=== PATIENT | male | born 1945 | race Caucasian/White ===

== ENCOUNTER → 2016-03-15 | Outpatient (CLI) | payer OTHER ==
[~2016-03-15] MED LIST: ACIT1CAP2 PEG; ASPCH81X PO; FLM4 PO; ROSU20TA PO; TRAM-10 PO; XRL10 PO
[2016-03-15 12:49] LABS: BLOOD UREA NITROGEN 15 mg/dl (7-18); BUN/CREATININE RATIO 15.4 (10-20); CALCIUM 9.1 mg/dl (8.5-10.1); CARBON DIOXIDE 29 mmol/L (21-32); CHLORIDE 106 mmol/L (98-107); GLUCOSE 96 mg/dl (70-99); POTASSIUM 4.1 mmol/L (3.5-5.1); SODIUM 143 mmol/L (136-145)
== END | disposition home or self-care (01) ==
LOC: C.LABMFLN 11:30
PROVIDERS: ATTEND Family Medicine
DX: M54.9 Dorsalgia, unspecified (principal); R31.29 Other microscopic hematuria

== ENCOUNTER → 2016-03-15 | Outpatient (CLI) | payer OTHER ==
[~2016-03-15] MED LIST changes: +OPTIRAY 320 IV PRN
--- NOTE | 2016-03-15 13:17 | DIAGNOSTIC IMAGING REPORT ---
CT ABD/PELVIS IV AND ORAL CONT CLINICAL HISTORY: Acute back pain and hematuria COMPARISON STUDY: None. TECHNIQUE: Following the IV administration of 93 mL of Optiray-320, CT scan of the abdomen and pelvis was performed from the lung bases to the proximal femurs. Images are reviewed in the axial, sagittal, and coronal planes. IV contrast was administered without complication. CT DOSE: 635.65 mGy.cm FINDINGS: Lower chest: There is mild basilar atelectasis. Groundglass opacities in the left lower lobe are likely atelectatic. There are 3 adjacent right middle lobe pulmonary nodules measuring 5 mm 7 mm and 7 mm respectively. The clustered nature of the nodules favors an inflammatory/postinflammatory process. 6 month follow-up is recommended (assuming this is a low risk patient). There is small hiatal hernia. Liver: The contrast-enhanced liver is normal in size, contour, and attenuation. There is no intrahepatic biliary ductal dilatation. The hepatic veins and portal veins are patent. Gallbladder: Unremarkable. Spleen: Normal in size and attenuation. Pancreas: Unremarkable. Adrenal glands: Unremarkable. Kidneys: There is a 3 mm nonobstructing right renal calculus. There is a 3 mm nonobstructing intrarenal calculus on the left. There are bilateral renal cysts, the largest of which measures 9.6 cm. There is left-sided hydronephrosis. There is a proximal left ureteral calculus measuring 5 mm. Bowel: There are no transition zones indicate bowel obstruction. There is colonic diverticulosis. There are no acute peridiverticular inflammatory changes. There are no findings to indicate acute appendicitis. Peritoneum: There is no intraperitoneal free air or abdominal ascites. Vasculature: The abdominal aorta is normal in course and caliber. Adenopathy: None. Pelvic viscera: There is prostamegaly. Multiple prostatic calcifications are visualized. Skeletal structures: No destructive osseous lesions are seen. IMPRESSION: 1. 5 mm obstructing proximal left UPJ calculus at the L2-3 level. 2. Bilateral nephrolithiasis 3. No evidence of bowel obstruction. No evidence of free air 4. Clustered right middle lobe pulmonary nodules, the largest of which measures 7 mm. 6 month follow-up is recommended (assuming this is a low risk patient). Please refer to below summary of Fleischner criteria recommendations for follow-up of incidental CT nodules (Hector Meyers, Guidelines for management of small pulmonary nodules detected on CT scans: A statement from the Fleischner Society, Radiology 237: [phone].) Low Risk Patient: Minimal or no smoking or other known risk factors for malignancy <=4 mm: No follow-up needed. >4-6 mm: Initial follow-up CT at 12 months; if unchanged, no further follow-up. >6-8 mm: Initial follow-up CT at 6-12 months then at 18-24 months if no change. >8 mm: Follow-up CT at \R\3, 9, 24 months, or PET and/or biopsy. High Risk Patient: History of smoking or other known risk factors <=4 mm: Follow-up at 12 months; if unchanged, no further follow-up. >4-6 mm: Initial follow-up CT at 6-12 months then at 18-24 months if no change. >6-8 mm: Initial follow-up CT at 3-6 months then at 9-12 and 24 months if no change. >8 mm: Same as low risk patient. Note: Nodule size measured as average of length and width. Ground glass or partly solid nodules may require longer follow-up to exclude indolent adenocarcinoma. Electronically signed by: Olu Mathews M.D. 03/15/2016 1:15 PM Dictated Date/Time: 03/15/2016 1:08 PM
== END | disposition home or self-care (01) ==
LOC: C.CTS 11:27
PROVIDERS: ATTEND Family Medicine
DX: N20.0 Calculus of kidney (principal); R91.8 Other nonspecific abnormal finding of lung field; M54.9 Dorsalgia, unspecified; R31.29 Other microscopic hematuria

== ENCOUNTER → 2016-04-05 | Outpatient (CLI) | payer OTHER ==
[~2016-04-05] MED LIST changes: -OPTIRAY 320 IV PRN
--- NOTE | 2016-04-05 13:20 | DIAGNOSTIC IMAGING REPORT ---
KUB MEDICAL HISTORY: Nephrolithiasis. FINDINGS: 2 AP supine abdominal radiographs are correlated with abdominal CT dated 03/15/2016. There is a nonobstructed abdominal bowel gas pattern. Large coarse calcifications are noted in the prostate gland. An 8 mm calculus projects over the left transverse process of L4, likely corresponding to an obstructing ureteral calculus. An additional 4 mm nonobstructing calculus projects over the left kidney. No calcifications are seen projecting over the right kidney or along the course of the right ureter. Vascular calcifications are seen in the pelvis. The skeletal structures are osteopenic. There is moderate lumbosacral spondylosis. IMPRESSION: 1. An 8 mm calcification projects over the left transverse process of L4. This likely represents an obstructing ureteral calculus. 2. An additional nonobstructing calculus projects over the left kidney. Electronically signed by: Mihir Cervantes M.D. 04/05/2016 1:18 PM Dictated Date/Time: 04/05/2016 1:16 PM
== END | disposition home or self-care (01) ==
LOC: C.RAD 12:48
PROVIDERS: ATTEND Urology
DX: N20.0 Calculus of kidney (principal)

== ENCOUNTER → 2016-04-14 | Day surgery (SDC) | payer OTHER ==
--- NOTE | 2016-04-07 08:36 | DIAGNOSTIC IMAGING REPORT ---
CHEST 2 VIEWS ROUTINE CLINICAL HISTORY: Preoperative evaluation. Ureteral calculus. COMPARISON STUDY: No previous studies for comparison. FINDINGS: There is no pneumothorax or pleural effusion. Pulmonary vascularity is normal. Cardiac size is normal. Mediastinal contours are normal. Multiple pulmonary nodules are noted, including a 1.8 cm nodule superolateral to the left hilum. There is a 1.4 cm right upper lobe nodule. Several right middle lobe nodules are noted. IMPRESSION: 1. Multiple indeterminate pulmonary nodules, measuring up to 1.[address] is recommended for further evaluation. 2. No acute cardiopulmonary findings. Electronically signed by: Omi Bowden M.D. 04/07/2016 8:35 AM Dictated Date/Time: 04/07/2016 8:31 AM
[2016-04-07 09:36] LABS: BASO % 0.2 %; BASO ABS # 0.02 K/uL (0-0.2); COMPLETE YES; HEMATOCRIT 51.1 % (42-52); IG% 0.3 %; LYMPH % 15.4 %; LYMPH ABS # 1.81 K/uL (1.2-3.4); MEAN CELL VOLUME 92.7 fL (80-100); MEAN CORPUSCULAR HEMOGLOBIN 32.3 pg (25-34); MEAN CORPUSCULAR HGB CONC 34.8 g/dl (32-36); MEAN PLATELET VOLUME 10.7 fL (7.4-10.4); NEUT % 75.1 %; PLATELET COUNT 198 K/uL (130-400); RED BLOOD COUNT 5.51 M/uL (4.7-6.1); WHITE BLOOD COUNT 11.74 K/uL (4.8-10.8)
[2016-04-07 09:51] LABS: BLOOD UREA NITROGEN 13 mg/dl (7-18); CARBON DIOXIDE 29 mmol/L (21-32); CHLORIDE 104 mmol/L (98-107); POTASSIUM 4.2 mmol/L (3.5-5.1); SODIUM 141 mmol/L (136-145)
[2016-04-07 09:57] LABS: URINE APPEARANCE CLEAR (CLEAR); URINE BILIRUBIN NEG (NEG); URINE COLOR YELLOW; URINE NITRITE NEG (NEG); URINE PH 5.5 (4.5-7.5); URINE SPECIFIC GRAVITY 1.015 (1.000-1.030); UROBILINOGEN NEG (NEG)
[2016-04-07 10:03] LABS: MANUAL MICROSCOPIC REQUIRED? NO; REVIEW REQ? NO
[2016-04-12 08:54] VITALS: Ht 188 cm; Wt 90.5 kg
[~2016-04-14] VITALS: Ht 188 cm; Wt 90.5 kg
[~2016-04-14] MED LIST changes: +ACETAMINOPHEN 325 MG TAB PO PRN; +ALBUT/IPRATROP 3MG/0.5MG NEB 3 ML VIAL ONE; +ATROPINE SULFATE 0.1 MG/ML 5ML SYR IV PRN; +DEXAMETHASONE SOD INJ 4 MG/ML VIAL ONE; +EpHEDrine SULFATE 50MG/5ML SYR ONE; +EpHEDrine SULFATE INJ 50 MG/ML AMP IV PRN; +FENTANYL CITRATE INJ 50 MCG/1 ML 2 ML VIAL IV PRN; +FENTANYL CITRATE INJ 50 MCG/1 ML 2 ML VIAL ONE; +LACTATED RINGER'S 1000ML 1,000 ML IV SCH; +LIDOCAINE HCL 2% 2 ML VIAL (20MG/ML) ONE; +MIDAZOLAM HCL 1 MG/ML 2ML VIAL ONE; +NURSING VERBAL MED ORDER ONE; +ONDANSETRON INJ 2 MG/ML 2 ML VIAL ONE; +OXYCODONE/ACETAMINOPHEN 5-325 TAB PO PRN; +PHENYLEPHRINE HCL INJ 10 MG/ML VIAL ONE; +PROPOFOL IV EMULSION 10 MG/ML 20 ML VIAL IV ONE; +SODIUM CHLORIDE 0.9% 1000ML 1,000 ML IV SCH; +TAMSULOSIN HCL 0.4 MG CAP PO SCH
--- NOTE | 2016-04-14 08:26 | DIAGNOSTIC IMAGING REPORT ---
KUB HISTORY: N20.0 [id number] COMPARISON: KUB 04/05/2016. FINDINGS: The bowel gas pattern is unremarkable. There are no dilated loops of small bowel to suggest an obstruction. No change in the 8 mm stone at the left side of the L4 vertebral body. This favors a proximal left ureteral stone. There is also stable 4 mm calcification projecting over the lower pole of the left kidney. There are 2 punctate stones within the upper pole of the right kidney. Stable punctate calcification overlying the left side of the lower sacrum. This may represent a phlebolith. No pneumoperitoneum or pneumatosis. IMPRESSION: 1. Bilateral nephrolithiasis. 2. No change in the 8 mm calcification overlying the left L4 transverse processes. This favors a proximal left ureteral stone. Electronically signed by: Pee Quiles M.D. 04/14/2016 8:25 AM Dictated Date/Time: 04/14/2016 8:22 AM
--- NOTE | 2016-04-14 08:47 | History & Physical Bridge Note ---
H&P Re-Evaluation Bridge Note: I have examined the patient, reviewed the History & Physical and in the interval since the performance of the History & Physical I have noted the following changes of clinical significance: No changes noted
--- NOTE | 2016-04-14 09:10 | Discharge Instructions-SurgCtr ---
Discharge Instructions Visit Reason for Visit: Left Ureteral Calculus Discharge Discharge Diagnosis / Problem: treat left ureteral stone Discharge Goals Goal(s): Decrease discomfort, Improve function, Increase independence, Improve disease control Medications Stopped Medications Name(s): Aspirin Last dose 04/07/16 Activity Recommendations Activity Limitations: resume your previous activity Lifting Limitations: none Exercise/Sports Limitations: none May Resume Sexual Activity: when tolerated Shower/Bathe: no limitations Driving or Machine Use: no limitations Anesthesia . Post Anesthesia Instructions: If you have had General Anesthesia or IV Sedation: * Do not drive today. * Resume driving when surgeon permits. * Do not make important decisions or sign legal documents today. * Call surgeon for: 1. Temperature elevations greater than 101 degrees F. 2. Uncontrollable pain. 3. Excessive bleeding. 4. Persistent nausea and vomiting. 5. Medication intolerance (nausea, vomiting or rash). * For nausea and vomiting use only clear liquids such as: tea, soda, bouillon until nausea subsides, then gradually increase diet as tolerated. * If you have any concerns or questions, call your surgeon's office. If physician is unavailable and it is an emergency, call 911 or go to the nearest emergency room. . Diet Recommendations Home Diet: no limitations Pending Studies Studies pending at discharge: no Medical Emergencies . Who to Call and When: Medical Emergencies: If at any time you feel your situation is an emergency, please call 911 immediately. . Non-Emergent Contact Non-Emergency issues call your: Urologist Call Non-Emergent contact if: you have a fever, temperature is above 101.5, your pain is not controlled, your pain is worsening . . "Provider Documentation" section prepared by Artur Gunn.
--- NOTE | 2016-04-14 09:43 | [facility] Post Operative Brief Note ---
Immediate Operative Summary Operative Date Apr 14, 2016. Pre-Operative Diagnosis Left ureteral stone Post-Operative Diagnosis same Procedure(s) Performed Left Extracorporeal Shock Wave Lithotripsy--Ureteral Surgeon Dr Sanderson Addiction Psychiatrist Surgeon(s) 0 Estimated Blood Loss 0 Findings left ureteral stone - appeared to fragment nicely Specimens 0 Drains none Anesthesia gen Complication(s) None Disposition Recovery Room / PACU (stable)
--- NOTE | 2016-04-14 10:29 | Anesthesia Progress Nt - [facility] ---
Anesthesia Post Op Note Date & Time Apr 14, 2016 at 10:29 Vital Signs Pain Intensity: 0 Vital Signs Past 12 Hours Date Time Temp Pulse Resp B/P Pulse Ox O2 Delivery O2 Flow Rate FiO2 04/14/16 09:50 36.2 92 24 113/73 95 Diffusion Mask 6 04/14/16 07:35 36.4 79 18 136/84 94 Room Air Notes Mental Status: alert / awake / arousable, participated in evaluation Pt Amnestic to Procedure: Yes Nausea / Vomiting: adequately controlled Pain: adequately controlled Airway Patency, RR, SpO2: stable & adequate BP & HR: stable & adequate Hydration State: stable & adequate Anesthetic Complications: no major complications apparent
[2016-04-14 11:28] VITALS: TEMP 37
[2016-04-14 11:55] VITALS: BP 133/78; PULSE 94; O2SAT 94
--- NOTE | 2016-04-16 13:35 | OPERATIVE REPORT ---
DATE OF OPERATION: 04/14/2016 PREOPERATIVE DIAGNOSIS: Left ureteral calculus. POSTOPERATIVE DIAGNOSIS: Left ureteral calculus. PROCEDURE PERFORMED: Left extracorporeal shockwave lithotripsy. ANESTHESIA: General. ESTIMATED BLOOD LOSS: 0. URINE OUTPUT: Not recorded. SPECIMENS: There are no specimens. DRAINS: There are no drains. DESCRIPTION OF THE PROCEDURE: Mika Orr was identified in the preoperative holding area. Appropriate informed consents were reviewed and completed and the patient was transported to the operating suite. Upon arrival, he did not receive antibiotics and general anesthesia was induced. A left extracorporeal shockwave lithotripsy was then commenced after localizing the stone. A total of 3000 shocks were delivered to the stone with good evidence of fragmentation. Further details can be found on the [place] [facility] Management Information Sheet. At the conclusion of the case, the patient was extubated and taken to the PACU in stable condition. I attest to the content of the Intraoperative Record and any orders documented therein. Any exceptio ns are noted below.
== END | disposition home or self-care (01) ==
LOC: X.SURG 07:23
PROVIDERS: ATTEND Urology
DX: N20.1 Calculus of ureter (principal); R31.29 Other microscopic hematuria; L73.2 Hidradenitis suppurativa; M54.9 Dorsalgia, unspecified; I25.10 Atherosclerotic heart disease of native coronary artery without angina pectoris; L40.9 Psoriasis, unspecified

== ENCOUNTER → 2016-04-19 | Outpatient (CLI) | payer OTHER ==
[~2016-04-19] MED LIST changes: -ACETAMINOPHEN 325 MG TAB PO PRN; -ALBUT/IPRATROP 3MG/0.5MG NEB 3 ML VIAL ONE; -ATROPINE SULFATE 0.1 MG/ML 5ML SYR IV PRN; -DEXAMETHASONE SOD INJ 4 MG/ML VIAL ONE; -EpHEDrine SULFATE 50MG/5ML SYR ONE; -EpHEDrine SULFATE INJ 50 MG/ML AMP IV PRN; -FENTANYL CITRATE INJ 50 MCG/1 ML 2 ML VIAL IV PRN; -FENTANYL CITRATE INJ 50 MCG/1 ML 2 ML VIAL ONE; -LACTATED RINGER'S 1000ML 1,000 ML IV SCH; -LIDOCAINE HCL 2% 2 ML VIAL (20MG/ML) ONE; -MIDAZOLAM HCL 1 MG/ML 2ML VIAL ONE; -NURSING VERBAL MED ORDER ONE; -ONDANSETRON INJ 2 MG/ML 2 ML VIAL ONE; -OXYCODONE/ACETAMINOPHEN 5-325 TAB PO PRN; -PHENYLEPHRINE HCL INJ 10 MG/ML VIAL ONE; -PROPOFOL IV EMULSION 10 MG/ML 20 ML VIAL IV ONE; -SODIUM CHLORIDE 0.9% 1000ML 1,000 ML IV SCH; -TAMSULOSIN HCL 0.4 MG CAP PO SCH
--- NOTE | 2016-04-19 07:53 | DIAGNOSTIC IMAGING REPORT ---
KUB CLINICAL HISTORY: Nephrolithiasis. FINDINGS: 2 AP abdominal radiographs are compared to study dated 04/14/2016 and correlated with abdominal CT dated 03/15/2016. There is a nonobstructed abdominal bowel gas pattern. Large coarse calcifications are noted in the prostate gland. The left ureteral calculus seen on 04/14/2016 is no longer identified. A 5 mm nonobstructing calculus projects over the left kidney, and a punctate nonobstructing calculi project over the right upper pole. Numerous vascular calcifications are seen in the pelvis. The skeletal structures are osteopenic. There is moderate lumbosacral spondylosis. IMPRESSION: 1. The large left ureteral calculus seen on 04/14/2016 is no longer identified. 2. Bilateral nonobstructing calculi as above. Electronically signed by: Mihir Cervantes M.D. 04/19/2016 7:51 AM Dictated Date/Time: 04/19/2016 7:46 AM
== END | disposition home or self-care (01) ==
LOC: C.RAD 07:21
PROVIDERS: ATTEND Urology
DX: N20.0 Calculus of kidney (principal)

== ENCOUNTER → 2016-04-25 | Outpatient (CLI) | payer OTHER | END | disposition home or self-care (01) | LOC: C.LABSPEC 10:13 | PROVIDERS: ATTEND Family Medicine | DX: N20.0 Calculus of kidney (principal) ==

== ENCOUNTER → 2016-05-01 | Outpatient (CLI) | payer OTHER ==
[2016-05-01 13:58] LABS: CHOLESTEROL/HDL RATIO 3.1
== END | disposition home or self-care (01) ==
LOC: C.LABMFLN 07:42
PROVIDERS: ATTEND Family Medicine
DX: E78.00 Pure hypercholesterolemia, unspecified (principal)

== ENCOUNTER 2016-05-15 09:49 | Emergency (ER) | payer OTHER ==
[~2016-05-15] VITALS: Ht 188 cm; Wt 91.2 kg
[~2016-05-15 09:49] MED LIST changes: -ACIT1CAP2 PEG; -OPTIRAY 320 IV PRN; -XRL10 PO
[2016-05-15 09:57] VITALS: TEMP 36.9; Ht 188 cm; Wt 91.2 kg
[2016-05-15] MEDS ORDERED: ACIT1CAP2 PEG (10:35)
[2016-05-15 10:41] LABS: BASO % 0.4 %; BASO ABS # 0.04 K/uL (0-0.2); COMPLETE YES; EOS % 6.6 %; HEMATOCRIT 45.2 % (42-52); IG% 0.2 %; LYMPH % 18.8 %; LYMPH ABS # 1.73 K/uL (1.2-3.4); MEAN CELL VOLUME 91.5 fL (80-100); MEAN CORPUSCULAR HEMOGLOBIN 31.6 pg (25-34); MEAN CORPUSCULAR HGB CONC 34.5 g/dl (32-36); MEAN PLATELET VOLUME 9.9 fL (7.4-10.4); MONO % 6.6 %; NEUT % 67.4 %; PLATELET COUNT 169 K/uL (130-400); RED BLOOD COUNT 4.94 M/uL (4.7-6.1); WHITE BLOOD COUNT 9.19 K/uL (4.8-10.8)
[2016-05-15 10:57] LABS: PARTIAL THROMBOPLASTIN RATIO 1.1; PROTHROMBIN TIME (PATIENT) 10.5 SECONDS (9.0-12.0)
[2016-05-15 10:59] LABS: ALT/SGPT 23 U/L (12-78); BLOOD UREA NITROGEN 11 mg/dl (7-18); BUN/CREATININE RATIO 13.4 (10-20); CALCIUM 9.1 mg/dl (8.5-10.1); CARBON DIOXIDE 29 mmol/L (21-32); CHLORIDE 107 mmol/L (98-107); CREATININE 0.79 mg/dl (0.60-1.40); GLUCOSE 87 mg/dl (70-99); POTASSIUM 4.5 mmol/L (3.5-5.1); SODIUM 141 mmol/L (136-145)
[2016-05-15 11:03] LABS: ALKALINE PHOSPHATASE 99 U/L (45-117); AST/SGOT 20 U/L (15-37)
[2016-05-15] MEDS ORDERED: HEPARIN SOD 5000 UNIT/0.5 ML CARP ONE (11:12)
[2016-05-15] MEDS ORDERED: HEPARIN 25000 UNIT/500 ML D5W ONE (11:12)
[2016-05-15] MEDS ORDERED: HEPARIN 25,000 UNIT/500ML D5W 500 ML IV PRN (11:30)
--- NOTE | 2016-05-15 12:11 | Medical Consult ---
Consultation Date of Consultation: May 15, 2016. Attending Physician: Dr. Lugo Reason for Consultation: Evaluation for admission-pulmonary emboli History of Present Illness This patient is a pleasant 71-year-old male that was sent to the emergency department by his primary care physician today after reviewing his results from a CAT scan earlier today. The patient had a CAT scan to follow up pulmonary nodules. Pulmonary nodules are stable. There was however a new diagnosis of bilateral pulmonary emboli. The patient does admit to having dyspnea with exertion over the last week. He typically does not get winded with physical activity. He noticed it when he was walking up from the basement steps carrying a bucket of coal. He denies any chest pain or pressure. No dizziness or lightheadedness. He denies any diaphoresis or nausea. The patient otherwise has been fairly healthy. He denies any recent long travel. He denies any calf/leg pain. No history of cancer reported. Denies any previous history of blood clots. Denies any family history of blood clots. 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 Would smoke approximately 1 pack a day up until that point.) Drug Use: none Marital Status: single Housing Status: lives alone Occupation Status: employed Allergies Coded Allergies: No Known Allergies (Verified , 05/15/16) Home Medications Acitretin 25 mg Sunday, Sunday, Sunday Aspirin 81 mg daily Crestor 20 g daily Nitrostat when necessary Current Inpatient Medications Current Inpatient Medications Medications (Trade) Dose Ordered Sig/Genia Route Start Time Stop Time Status Last Admin Dose Admin Heparin Sodium/ Dextrose (Heparin 25,000 Unit/500ml D5W) 500 ml @ 31 mls/hr Q16H8M PRN IV 05/15/16 11:30 06/14/16 11:29 Review of Systems 10 system review performed and negative unless noted in HPI or below Physical Exam Date Time Temp Pulse Resp B/P Pulse Ox O2 Delivery O2 Flow Rate FiO2 05/15/16 11:05 63 18 115/73 93 Room Air 05/15/16 10:19 72 05/15/16 10:09 93 Room Air 05/15/16 09:57 36.9 79 16 127/79 92 Room Air General Appearance: no apparent distress Head: normocephalic ENT: + pertinent finding (oral mucosa fairly moist. No exudate noted) Neck: no JVD Respiratory/Chest: lungs clear Cardiovascular: regular rate, rhythm Abdomen/GI: normal bowel sounds, non tender, soft Extremities/Musculoskelatal: + pertinent finding (trace pitting edema noted in the left lower extremity. No erythema or tenderness appreciated. No edema noted in the right lower extremity.) Neurologic/Psych: no motor/sensory deficits, oriented x 3 Skin: warm/dry Laboratory Results Patient Name: DEANNA WATKINS JR Unit Number: [id number] Dictated: 05/15/16653 Transcribed: 05/15/16653 ARG Printed Date/Time: [~ rep prt dt]/[~ rep prt tm] [~ rep ct labl] - [~ rep ct ivnm] [facility] [place] [address] Dictated: 05/15/16653 Transcribed: 05/15/16653 ARG Printed Date/Time: [~ rep prt dt]/[~ rep prt tm] [~ rep ct labl] - [~ rep ct ivnm] Patient: DEANNA WATKINS JR Address1: [address] [place] [address] Rec: [id number] Address2: Acct ID: [id number] [facility] Zip: [place] [address] Date: 1945 Sex: M Room/Bed: Ref Phy: Mihir Ybarra M.D. SC: C.CTS Att Phy: Mihir Ybarra M.D. Report #: [id number] Dasia Phy: Mihir Ybarra M.D. 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 Diagnosis: LUNG NODULES Ordering Phy: Mihir Ybarra M.D. Service Date: 05/15/16 Admit Date: 05/15/16 MNE: [id number] CONF: DICTATED BY: Olu Mathews M.D.]] CC: Mihir Ybarra M.D. [facility]: [~ rep ct add3]] CT OF THE CHEST WITH IV CONTRAST CLINICAL HISTORY: LUNG NODULES COMPARISON STUDY: Chest x-ray dated 04/07/2016 TECHNIQUE: Following the IV administration of 92 mL of Optiray-320, CT of the thorax was performed from the thoracic inlet to the lung bases. Images are reviewed in the axial, sagittal, and coronal planes. IV contrast was administered without complication. CT DOSE: 342.56 mGy.cm FINDINGS: Thyroid: Imaged portions of the thyroid gland are normal in appearance. Thoracic aorta: The thoracic aorta is normal in course and caliber, noting standard 3-vessel arch anatomy. No aneurysm or dissection is seen. Pulmonary vasculature: There are bilateral pulmonary artery filling defects indicative of bilateral pulmonary embolism. This finding will be called. HEART: The heart is normal in size. There are coronary artery calcifications present. Lungs and pleural spaces: There is underlying pulmonary emphysema. There is a 12 mm calcified granuloma within the right upper lobe. There is a 10 x 4 mm pleural-based nodule within the right lower lobe as visualized in image #116/336. There are nodular pleural-based opacities within the right middle lobe the largest of which measures 1 cm as located on image #185/336. There is a 15 mm pleural-based nodule within the superior segment the left lower lobe as visualized on image #115/336. This contains peripheral calcifications. Mediastinum: Mediastinal lymph nodes are the upper limits of normal in size. Camille: There is no evidence of pathologic hilar adenopathy. Axilla: Clear. Upper abdomen: There is an 8 mm upper pole right renal cyst Skeletal structures: There are no lytic or blastic osseous lesions. IMPRESSION: 1. Bilateral pulmonary embolism. This finding will be called. 2. Bilateral pulmonary nodules, many of which are postinflammatory. A three-month follow-up study is recommended per Fleischner criteria. Please refer to below summary of Fleischner criteria recommendations for follow-up of incidental CT nodules (Hector Meyers, Guidelines for management of small pulmonary nodules detected on CT scans: A statement from the Fleischner Society, Radiology 237: [phone].) Low Risk Patient: Minimal or no smoking or other known risk factors for malignancy <=4 mm: No follow-up needed. >4-6 mm: Initial follow-up CT at 12 months; if unchanged, no further follow-up. >6-8 mm: Initial follow-up CT at 6-12 months then at 18-24 months if no change. >8 mm: Follow-up CT at \R\3, 9, 24 months, or PET and/or biopsy. High Risk Patient: History of smoking or other known risk factors <=4 mm: Follow-up at 12 months; if unchanged, no further follow-up. >4-6 mm: Initial follow-up CT at 6-12 months then at 18-24 months if no change. >6-8 mm: Initial follow-up CT at 3-6 months then at 9-12 and 24 months if no change. >8 mm: Same as low risk patient. Note: Nodule size measured as average of length and width. Ground glass or partly solid nodules may require longer follow-up to exclude indolent adenocarcinoma. Electronically signed by: Olu Mathews M.D. 05/15/2016 7:02 AM Dictated Date/Time: 05/15/2016 6:54 AM The status of this report is Signed. Draft = Not yet reviewed or approved by Radiologist. Signed = Reviewed and approved by Radiologist. <AttendingPhy>Mihir Ybarra M.D.</AttendingPhy> <FamilyPhy>Mihir Ybarra M.D.</ FamilyPhy> <PrimaryPhy>Mihir Ybarra M.D.</PrimaryPhy> <UnitNumber>[id number]</ UnitNumber> <VisitNumber>[id number]</VisitNumber> <PatientName>DEANNA WATKINS JR</PatientName> <DateOfBirth>1945</DateOfBirth> <Location>[facility]</ Location> <ServiceDate>05/15/16</ServiceDate> <MNE>ESINDI</MNE> <OrderingPhy> Mihir Ybarra M.D.</OrderingPhy> <OrderingPhyMNE>f rep ord dr cai</OrderingPhyMNE > <DictatingPhyMNE>f rep dict dr cai</DictatingPhyMNE> <CCListMNE>f rep ct mne</ CCListMNE> <AdmittingPhyMNE>f pt admit dr cai</AdmittingPhyMNE> <AttendingPhyMNE >f pt attend dr cai</AttendingPhyMNE> <ConsultingPhyMNE>f pt consult dr cai</ConsultingPhyMNE> <FamilyPhyMNE>f pt fam dr cai</FamilyPhyMNE> <OtherPhyMNE>f pt other dr cai</OtherPhyMNE> < PrimaryPhyMNE>f pt prim care dr cai</PrimaryPhyMNE> <ReferringPhyMNE>f pt referring dr cai</ReferringPhyMNE> 05/15/16 10:30 Red Blood Count 4.94, Mean Corpuscular Volume 91.5, Mean Corpuscular Hemoglobin 31.6, Mean Corpuscular Hemoglobin Concent 34.5, Mean Platelet Volume 9.9, Neutrophils (%) (Auto) 67.4, Lymphocytes (%) (Auto) 18.8, Monocytes (%) (Auto) 6.6, Eosinophils (%) (Auto) 6.6, Basophils (%) (Auto) 0.4, Neutrophils # (Auto) 6.18, Lymphocytes # (Auto) 1.73, Monocytes # (Auto) 0.61, Eosinophils # (Auto) 0.61, Basophils # (Auto) 0.04 05/15/16 10:30 Test 05/15/16 10:30 White Blood Count 9.19 K/uL (4.8-10.8) Red Blood Count 4.94 M/uL (4.7-6.1) Hemoglobin 15.6 g/dL (14.0-18.0) Hematocrit 45.2 % (42-52) Mean Corpuscular Volume 91.5 fL (80-100) Mean Corpuscular Hemoglobin 31.6 pg (25-34) Mean Corpuscular Hemoglobin Concent 34.5 g/dl (32-36) Platelet Count 169 K/uL (130-400) Mean Platelet Volume 9.9 fL (7.4-10.4) Neutrophils (%) (Auto) 67.4 % Lymphocytes (%) (Auto) 18.8 % Monocytes (%) (Auto) 6.6 % Eosinophils (%) (Auto) 6.6 % Basophils (%) (Auto) 0.4 % Neutrophils # (Auto) 6.18 K/uL (1.4-6.5) Lymphocytes # (Auto) 1.73 K/uL (1.2-3.4) Monocytes # (Auto) 0.61 K/uL (0.11-0.59) Eosinophils # (Auto) 0.61 K/uL (0-0.5) Basophils # (Auto) 0.04 K/uL (0-0.2) RDW Standard Deviation 43.4 fL (36.4-46.3) RDW Coefficient of Variation 13.0 % (11.5-14.5) Immature Granulocyte % (Auto) 0.2 % Immature Granulocyte # (Auto) 0.02 K/uL (0.00-0.02) Prothrombin Time 10.5 SECONDS (9.0-12.0) Prothromb Time International Ratio 1.0 (0.9-1.1) Activated Partial Thromboplast Time 28.9 SECONDS (21.0-31.0) Partial Thromboplastin Ratio 1.1 Anion Gap 5.0 mmol/L (3-11) Est Creatinine Clear Calc Drug Dose 101.2 ml/min Estimated GFR () 105.4 Estimated GFR (Non- 91.0 BUN/Creatinine Ratio 13.4 (10-20) Calcium Level 9.1 mg/dl (8.5-10.1) Total Bilirubin 0.6 mg/dl (0.2-1) Direct Bilirubin 0.2 mg/dl (0-0.2) Aspartate Amino Transf (AST/SGOT) 20 U/L (15-37) Alanine Aminotransferase (ALT/SGPT) 23 U/L (12-78) Alkaline Phosphatase 99 U/L (45-117) Troponin I < 0.015 ng/ml (0-0.045) Total Protein 6.7 gm/dl (6.4-8.2) Albumin 3.2 gm/dl (3.4-5.0) Last 24 Hours Test 05/15/16 10:30 White Blood Count 9.19 K/uL Red Blood Count 4.94 M/uL Hemoglobin 15.6 g/dL Hematocrit 45.2 % Mean Corpuscular Volume 91.5 fL Mean Corpuscular Hemoglobin 31.6 pg Mean Corpuscular Hemoglobin Concent 34.5 g/dl Platelet Count 169 K/uL Mean Platelet Volume 9.9 fL Neutrophils (%) (Auto) 67.4 % Lymphocytes (%) (Auto) 18.8 % Monocytes (%) (Auto) 6.6 % Eosinophils (%) (Auto) 6.6 % Basophils (%) (Auto) 0.4 % Neutrophils # (Auto) 6.18 K/uL Lymphocytes # (Auto) 1.73 K/uL Monocytes # (Auto) 0.61 K/uL Eosinophils # (Auto) 0.61 K/uL Basophils # (Auto) 0.04 K/uL RDW Standard Deviation 43.4 fL RDW Coefficient of Variation 13.0 % Immature Granulocyte % (Auto) 0.2 % Immature Granulocyte # (Auto) 0.02 K/uL Prothrombin Time 10.5 SECONDS Prothromb Time International Ratio 1.0 Activated Partial Thromboplast Time 28.9 SECONDS Partial Thromboplastin Ratio 1.1 Sodium Level 141 mmol/L Potassium Level 4.5 mmol/L Chloride Level 107 mmol/L Carbon Dioxide Level 29 mmol/L Anion Gap 5.0 mmol/L Blood Urea Nitrogen 11 mg/dl Creatinine 0.79 mg/dl Est Creatinine Clear Calc Drug Dose 101.2 ml/min Estimated GFR () 105.4 Estimated GFR (Non- 91.0 BUN/Creatinine Ratio 13.4 Random Glucose 87 mg/dl Calcium Level 9.1 mg/dl Total Bilirubin 0.6 mg/dl Direct Bilirubin 0.2 mg/dl Aspartate Amino Transf (AST/SGOT) 20 U/L Alanine Aminotransferase (ALT/SGPT) 23 U/L Alkaline Phosphatase 99 U/L Troponin I < 0.015 ng/ml Total Protein 6.7 gm/dl Albumin 3.2 gm/dl Assessment & Plan This patient is a pleasant 71-year-old male that presents emergency department with a history of dyspnea on exertion for approximately one week. Bilateral pulmonary emboli noted on CT that was performed today New diagnosis of pulmonary emboli-the patient is not hypoxic or tachycardic. He is not symptomatic at rest. -It will be reasonable to discharge this patient home on Xarelto with close follow-up with his primary care physician. He was given 1 dose Xarelto prior to discharge. The patient and his family are comfortable with this plan. -He was given a follow-up appointment with his PCP this week -The patient agrees to return to the emergency department immediately for any worsening symptoms such as increased shortness of breath, chest pain or dizziness. Coronary artery disease-no anginal symptoms -Continue aspirin 81 mg daily -Continue Crestor 20 mg daily -Nitrostat prn at home Pulmonary nodules -Recommend follow-up CT in 3 months Psoriasis -Continue Acitretin as prescribed The plan was discussed with my attending physician who is in agreement This chart was completed in part utilizing [employer] Voice Recognition software. Attempts were made to minimize the grammatical errors, random word insertions, pronoun errors and incomplete sentences. Any formal questions or concerns about the content, text or information contained within the body of this dictation should be directly addressed to the provider for clarification. I personally evaluated this patient and performed a physical exam. I reviewed the orders. I read this note completed by Lola Humphrey PA-C and agree with the contents in entirety.
[2016-05-15] MEDS ORDERED: XRL10 PO (12:19)
[2016-05-15] MEDS ORDERED: RIVAROXABAN TAB 15 MG TAB PO ONE (12:30)
[2016-05-15 12:47] VITALS: BP 140/91; PULSE 79; O2SAT 94
--- NOTE | 2016-05-15 17:32 | EMERGENCY ROOM VISIT NOTE ---
History Report prepared by Ilia: Geneva Gonzales Under the Supervision of: Dr. Viet Lugo D.O. First contact with patient: 10:07 Chief Complaint: REFERRED BY DOCTOR Stated Complaint: BLOOD CLOT IN BOTH LUNGS History of Present Illness The patient is a 71 year old male who presents to the Emergency Room with complaints of blood clots in both lungs. He was referred by a doctor after a CT showed blood clots in the lungs. He reports dyspnea on exertion. He denies any hemoptysis, chest pain, hematuria, melena, hematochezia, or other complaints. He denies any recent travel or trauma. He has no history of bleeding in the brain or blood clots. Patient has no other complaints at this time. 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 Pt denies hemoptysis. Review of Systems See HPI for pertinent positives & negatives. A total of 10 systems reviewed and were otherwise negative. Past Medical & Surgical Medical Problems: (1) Heart disease (2) Kidney disease (3) Kidney stones Family History FH: cancer FH: heart disease FH: lung disease Hypertension Social History Smoking Status: Former Smoker Marital Status: single Housing Status: lives alone Occupation Status: retired Current/Historical Medications Scheduled Acitretin (Acitretin), 25 MG PEG 3XWK Aspirin (Aspirin Chewable), 81 MG PO QAM Rivaroxaban (Xarelto), 15 MG PO BID Rosuvastatin Calcium (Crestor), 20 MG PO QAM Allergies Coded Allergies: No Known Allergies (Verified , 05/15/16) Physical Exam Vital Signs Date Time Temp Pulse Resp B/P Pulse Ox O2 Delivery O2 Flow Rate FiO2 05/15/16 12:47 79 18 140/91 94 Room Air 05/15/16 11:05 63 18 115/73 93 Room Air 05/15/16 10:19 72 05/15/16 10:09 93 Room Air 05/15/16 09:57 36.9 79 16 127/79 92 Room Air Physical Exam GENERAL: Sitting up in bed, chronically-ill appearing, no acute distress. EYE EXAM: normal conjunctiva OROPHARYNX: no exudate, no erythema, lips, buccal mucosa, and tongue normal and mucous membranes are moist NECK: supple, no nuchal rigidity, no adenopathy, non-tender LUNGS: Faint wheezes bilaterally. Normal chest wall mechanics HEART: no murmurs, S1 normal and S2 normal ABDOMEN: abdomen soft, non-tender, normo-active bowel sounds, no masses, no rebound or guarding. BACK: Back is symmetrical on inspection and there is no deformity, no midline tenderness, no CVA tenderness. SKIN: no rashes and no bruising UPPER EXTREMITIES: upper extremities are grossly normal. LOWER EXTREMITIES: No pitting edema. NEURO EXAM: Normal sensorium, cranial nerves II-XII grossly intact, normal speech, no gross weakness of arms, no gross weakness of legs. Medical Decision & Procedures Laboratory Results 05/15/16 10:30 Red Blood Count 4.94, Mean Corpuscular Volume 91.5, Mean Corpuscular Hemoglobin 31.6, Mean Corpuscular Hemoglobin Concent 34.5, Mean Platelet Volume 9.9, Neutrophils (%) (Auto) 67.4, Lymphocytes (%) (Auto) 18.8, Monocytes (%) (Auto) 6.6, Eosinophils (%) (Auto) 6.6, Basophils (%) (Auto) 0.4, Neutrophils # (Auto) 6.18, Lymphocytes # (Auto) 1.73, Monocytes # (Auto) 0.61, Eosinophils # (Auto) 0.61, Basophils # (Auto) 0.04 05/15/16 10:30 Test 05/15/16 10:30 White Blood Count 9.19 K/uL (4.8-10.8) Red Blood Count 4.94 M/uL (4.7-6.1) Hemoglobin 15.6 g/dL (14.0-18.0) Hematocrit 45.2 % (42-52) Mean Corpuscular Volume 91.5 fL (80-100) Mean Corpuscular Hemoglobin 31.6 pg (25-34) Mean Corpuscular Hemoglobin Concent 34.5 g/dl (32-36) Platelet Count 169 K/uL (130-400) Mean Platelet Volume 9.9 fL (7.4-10.4) Neutrophils (%) (Auto) 67.4 % Lymphocytes (%) (Auto) 18.8 % Monocytes (%) (Auto) 6.6 % Eosinophils (%) (Auto) 6.6 % Basophils (%) (Auto) 0.4 % Neutrophils # (Auto) 6.18 K/uL (1.4-6.5) Lymphocytes # (Auto) 1.73 K/uL (1.2-3.4) Monocytes # (Auto) 0.61 K/uL (0.11-0.59) Eosinophils # (Auto) 0.61 K/uL (0-0.5) Basophils # (Auto) 0.04 K/uL (0-0.2) RDW Standard Deviation 43.4 fL (36.4-46.3) RDW Coefficient of Variation 13.0 % (11.5-14.5) Immature Granulocyte % (Auto) 0.2 % Immature Granulocyte # (Auto) 0.02 K/uL (0.00-0.02) Prothrombin Time 10.5 SECONDS (9.0-12.0) Prothromb Time International Ratio 1.0 (0.9-1.1) Activated Partial Thromboplast Time 28.9 SECONDS (21.0-31.0) Partial Thromboplastin Ratio 1.1 Anion Gap 5.0 mmol/L (3-11) Est Creatinine Clear Calc Drug Dose 101.2 ml/min Estimated GFR () 105.4 Estimated GFR (Non- 91.0 BUN/Creatinine Ratio 13.4 (10-20) Calcium Level 9.1 mg/dl (8.5-10.1) Total Bilirubin 0.6 mg/dl (0.2-1) Direct Bilirubin 0.2 mg/dl (0-0.2) Aspartate Amino Transf (AST/SGOT) 20 U/L (15-37) Alanine Aminotransferase (ALT/SGPT) 23 U/L (12-78) Alkaline Phosphatase 99 U/L (45-117) Troponin I < 0.015 ng/ml (0-0.045) Total Protein 6.7 gm/dl (6.4-8.2) Albumin 3.2 gm/dl (3.4-5.0) Laboratory results per my review. Medications Administered Medications (Trade) Dose Ordered Sig/Genia Route Start Time Stop Time Status Last Admin Dose Admin Heparin Sodium/ Dextrose 1 ea NOW STAT N/A 05/15/16 11:09 05/15/16 11:10 DC 05/15/16 11:09 1 EA Heparin Sodium/ Dextrose (Heparin 25,000 Unit/500ml D5W) 25,000 unit STK-MED ONCE .ROUTE 05/15/16 11:12 05/15/16 11:16 DC 05/15/16 11:23 25,000 UNIT Heparin Sodium (Porcine) (Heparin Sq 5000 Unit/0.5ml) 10,000 unit STK-MED ONCE .ROUTE 05/15/16 11:12 05/15/16 11:16 DC 05/15/16 11:21 7,000 UNIT ECG Indication: SOB/dyspnea Rate (beats per minute): 70 Rhythm: sinus rhythm Findings: RBBB, left axis deviation, other (poor baseline in septal leads) ED Course ED COURSE: Vital signs were reviewed and showed normal vitals. The patients medical record was reviewed The above diagnostic studies were performed and reviewed. ED treatments and interventions as stated above. 1010: The patient was evaluated in room B2. A complete history and physical examination was performed. 1108: I discussed the patient's case with JAMES Levi PA-C. The patient will be evaluated for further management. 1109: Heparin Sodium/Dextrose 1 ea. 1112: Heparin Sodium (Porcine) 7000 unit IV, Heparin Sodium/Dextrose 55218 unit IV. 1130: Heparin Sodium/Dextrose 500 ml @ 31 mls/hr IV. 1134: Upon reevaluation, the patient is resting comfortably. I discussed my findings with the patient and he understands and agrees with the treatment plan. Based on the patients age, coexisting illnesses, exam and lab findings the decision to treat as an inpatient was made. The patient remained stable while under my care. The patient will be evaluated for further management. Medical Decision Differential diagnoses includes but is not limited to pneumonia, bronchitis, COPD/Asthma exacerbation, pneumothorax, pulmonary embolism, congestive heart failure, acute coronary syndrome Patient is a 71-year-old male who presents the ER referred in following having an outpatient CT scan performed because of pulmonary nodules. The CT scan showed bilateral PEs. Vitals are stable. He does admit to dyspnea on exertion. Labs showed no significant leukocytosis or anemia. BMP along with LFTs, bilirubin and troponin were negative. INR was normal. Patient was placed on heparin drip and bolus. Discussed case with internal medicine for admission. They stopped the drip and discharged the patient on oral anticoagulation. Consults Time Called: 1100 Consulting Physician: JAMES Levi PA-C Returned Call: 1108 I discussed the patient's case with her. The patient will be evaluated for further management. Impression Primary Impression: Bilateral pulmonary embolism Additional Impression: Pulmonary nodules Critical Care I have personally spent 35 minutes of critical care time in the direct management of this patient. This includes bedside care, interpretation of diagnostic studies, and testing, discussion with consultants, patient, and family members, and other required patient management activities. This 35 minutes is in excess of all separately billable procedures. Scribe Attestation The scribe's documentation has been prepared under my direction and personally reviewed by me in its entirety. I confirm that the note above accurately reflects all work, treatment, procedures, and medical decision making performed by me. Departure Information Dispostion Being Evaluated By Hospitalist Prescriptions Rivaroxaban (Xarelto) 10 Mg Tab 15 MG PO BID for 21 Days, #63 TAB Prov: Lola Humphrey PA-C 05/15/16 Referrals Mihir Ybarra M.D. (PCP) Patient Instructions My [facility] Problem Qualifiers
== END 2016-05-15 12:48 | disposition home or self-care (01) ==
LOC: C.EDB 09:50
DX: I26.99 Other pulmonary embolism without acute cor pulmonale (principal); R91.8 Other nonspecific abnormal finding of lung field; I25.10 Atherosclerotic heart disease of native coronary artery without angina pectoris; N28.9 Disorder of kidney and ureter, unspecified; I25.2 Old myocardial infarction; Z87.442 Personal history of urinary calculi; Z80.9 Family history of malignant neoplasm, unspecified; Z82.49 Family history of ischemic heart disease and other diseases of the circulatory system; Z83.6 Family history of other diseases of the respiratory system; Z87.891 Personal history of nicotine dependence; Z79.01 Long term (current) use of anticoagulants; Z79.82 Long term (current) use of aspirin; Z79.899 Other long term (current) drug therapy

== ENCOUNTER → 2016-05-15 | Outpatient (CLI) | payer OTHER ==
[~2016-05-15] MED LIST changes: +OPTIRAY 320 IV PRN
--- NOTE | 2016-05-15 07:03 | DIAGNOSTIC IMAGING REPORT ---
CT OF THE CHEST WITH IV CONTRAST CLINICAL HISTORY: LUNG NODULES COMPARISON STUDY: Chest x-ray dated 04/07/2016 TECHNIQUE: Following the IV administration of 92 mL of Optiray-320, CT of the thorax was performed from the thoracic inlet to the lung bases. Images are reviewed in the axial, sagittal, and coronal planes. IV contrast was administered without complication. CT DOSE: 342.56 mGy.cm FINDINGS: Thyroid: Imaged portions of the thyroid gland are normal in appearance. Thoracic aorta: The thoracic aorta is normal in course and caliber, noting standard 3-vessel arch anatomy. No aneurysm or dissection is seen. Pulmonary vasculature: There are bilateral pulmonary artery filling defects indicative of bilateral pulmonary embolism. This finding will be called. HEART: The heart is normal in size. There are coronary artery calcifications present. Lungs and pleural spaces: There is underlying pulmonary emphysema. There is a 12 mm calcified granuloma within the right upper lobe. There is a 10 x 4 mm pleural-based nodule within the right lower lobe as visualized in image #[id number]. There are nodular pleural-based opacities within the right middle lobe the largest of which measures 1 cm as located on image #[id number]. There is a 15 mm pleural-based nodule within the superior segment the left lower lobe as visualized on image #[id number]. This contains peripheral calcifications. Mediastinum: Mediastinal lymph nodes are the upper limits of normal in size. Camille: There is no evidence of pathologic hilar adenopathy. Axilla: Clear. Upper abdomen: There is an 8 mm upper pole right renal cyst Skeletal structures: There are no lytic or blastic osseous lesions. IMPRESSION: 1. Bilateral pulmonary embolism. This finding will be called. 2. Bilateral pulmonary nodules, many of which are postinflammatory. A three-month follow-up study is recommended per Fleischner criteria. Please refer to below summary of Fleischner criteria recommendations for follow-up of incidental CT nodules (Hector Meyers, Guidelines for management of small pulmonary nodules detected on CT scans: A statement from the Fleischner Society, Radiology 237: [phone].) Low Risk Patient: Minimal or no smoking or other known risk factors for malignancy <=4 mm: No follow-up needed. >4-6 mm: Initial follow-up CT at 12 months; if unchanged, no further follow-up. >6-8 mm: Initial follow-up CT at 6-12 months then at 18-24 months if no change. >8 mm: Follow-up CT at \R\3, 9, 24 months, or PET and/or biopsy. High Risk Patient: History of smoking or other known risk factors <=4 mm: Follow-up at 12 months; if unchanged, no further follow-up. >4-6 mm: Initial follow-up CT at 6-12 months then at 18-24 months if no change. >6-8 mm: Initial follow-up CT at 3-6 months then at 9-12 and 24 months if no change. >8 mm: Same as low risk patient. Note: Nodule size measured as average of length and width. Ground glass or partly solid nodules may require longer follow-up to exclude indolent adenocarcinoma. Electronically signed by: Olu Mathews M.D. 05/15/2016 7:02 AM Dictated Date/Time: 05/15/2016 6:54 AM
== END | disposition home or self-care (01) ==
LOC: C.CTS 06:17
PROVIDERS: ATTEND Family Medicine
DX: R91.8 Other nonspecific abnormal finding of lung field (principal); I26.99 Other pulmonary embolism without acute cor pulmonale

== ENCOUNTER → 2016-08-15 | Outpatient (CLI) | payer OTHER ==
[~2016-08-15] MED LIST changes: +ACIT1CAP2 PEG; -FLM4 PO; +OPTIRAY 320 IV PRN; -TRAM-10 PO
--- NOTE | 2016-08-15 08:35 | DIAGNOSTIC IMAGING REPORT ---
CT OF THE CHEST WITH IV CONTRAST CLINICAL HISTORY: Lung nodules. History of pulmonary emboli. COMPARISON STUDY: Chest CT T May 15, 2016. TECHNIQUE: Following IV administration of 119 mL of Optiray-320, helical axial images of the chest were obtained. Images were viewed in the axial, sagittal and coronal planes. IV contrast was administered without complication. CT DOSE: 385.40 mGy.cm FINDINGS: No enlarged axillary, mediastinal or hilar lymph nodes are present. There is moderate coronary artery calcification. A small hiatal hernia is present. Central airways are patent. There is moderate emphysema. No pneumothorax or pleural effusion is present. A 1.2 cm peripherally calcified nodule within the right upper lobe shown on image 93 of 331 is unchanged. This is benign. A 1.5 cm subpleural nodule within the left lower lobe shown on image 113 has peripheral calcification. This is indeterminate although likely benign and is unchanged since CT of May 15, 2016. A 1 cm subpleural right lower lobe nodule shown image 118 is unchanged. Right middle lobe opacity has partially resolved since prior exam and this may have reflected a resolving pulmonary infarct given known pulmonary emboli. A few right middle lobe nodules measuring up to 7 mm are unchanged. No new nodules are present. Several chronic pulmonary emboli are noted. The embolus burden markedly improved since exam of May 15, 2016 and no new emboli are identified. The bony thorax and upper abdomen are unremarkable. IMPRESSION: 1. No change in several pulmonary nodules since exam of May 15, 2016. These nodules are likely benign but a follow-up chest CT in 6 months to ensure stability is recommended. 2. Near complete resolution of pulmonary emboli shown on exam of May 15, 2016. Minimal residual chronic pulmonary emboli. No new pulmonary emboli identified. Electronically signed by: Omi Bowden M.D. 08/15/2016 8:34 AM Dictated Date/Time: 08/15/2016 7:54 AM
== END | disposition home or self-care (01) ==
LOC: C.CTS 07:32
PROVIDERS: ATTEND Family Medicine
DX: R91.8 Other nonspecific abnormal finding of lung field (principal)

== ENCOUNTER → 2017-01-25 | Outpatient (CLI) | payer OTHER ==
[~2017-01-25] MED LIST changes: -OPTIRAY 320 IV PRN
--- NOTE | 2017-01-25 09:41 | DIAGNOSTIC IMAGING REPORT ---
(CHEST) THORAX WITHOUT CT DOSE: 374.20 mGy.cm HISTORY: Pulmonary nodules R91.8 [facility]time last week in TECHNIQUE: Multiaxial CT images of the chest were performed without contrast. A dose lowering technique was utilized adhering to the principles of ALARA. COMPARISON: HISTORY: Surge and 17 FINDINGS: Unchanging bilateral parenchymal nodules. No focal infiltrate. No new or interval findings. Mediastinal and hilar nodes are unchanged. No evidence for progressive adenopathy. Several shotty nodes of the axillary region unchanged. IMPRESSION: 1. Multinodular appearance to both hemithoraces unchanged in the prior exam. 2. No new or interval process. 3. note is made of left renal cysts as well as nonobstructing right renal calcification The above report was generated using voice recognition software. It may contain grammatical, syntax or spelling errors. Electronically signed by: Aaron Dias M.D. 01/25/2017 9:40 AM Dictated Date/Time: 01/25/2017 9:33 AM
== END | disposition home or self-care (01) ==
LOC: C.CTS 09:18
PROVIDERS: ATTEND Family Medicine
DX: R91.8 Other nonspecific abnormal finding of lung field (principal); N28.1 Cyst of kidney, acquired; N20.0 Calculus of kidney

== ENCOUNTER → 2017-02-22 | Outpatient (CLI) | payer OTHER ==
[~2017-02-22] MED LIST changes: +ACET-1311 PO; +OXYC-90 PO; +XRL10 PO; +[UNRECOGNIZED DRUG - CODE]
[2017-02-22 13:32] LABS: ALT/SGPT 25 U/L (12-78); AST/SGOT 25 U/L (15-37); BLOOD UREA NITROGEN 13 mg/dl (7-18); CALCIUM 8.7 mg/dl (8.5-10.1); CARBON DIOXIDE 29 mmol/L (21-32); CREATININE 1.08 mg/dl (0.60-1.40); GLUCOSE 93 mg/dl (70-99); POTASSIUM 4.2 mmol/L (3.5-5.1); SODIUM 139 mmol/L (136-145)
[2017-02-22 13:35] LABS: CHOLESTEROL 137 mg/dl (0-200); LDL CHOLESTEROL CALCULATED 66 mg/dl
== END | disposition home or self-care (01) ==
LOC: C.LABMFLN 07:14
PROVIDERS: ATTEND Family Medicine
DX: I25.10 Atherosclerotic heart disease of native coronary artery without angina pectoris (principal); E78.00 Pure hypercholesterolemia, unspecified; N20.0 Calculus of kidney

== ENCOUNTER 2017-03-13 08:18 | Emergency (ER) | payer OTHER ==
[~2017-03-13] VITALS: Ht 188 cm; Wt 89.0 kg
[~2017-03-13 08:18] MED LIST changes: -ACET-1311 PO; -OXYC-90 PO; -XRL10 PO; -[UNRECOGNIZED DRUG - CODE]
[2017-03-13 08:28] VITALS: BP 118/70; TEMP 37.2; Ht 188 cm; Wt 89.0 kg
[2017-03-13] MEDS ORDERED: XRL10 PO (08:56)
[2017-03-13] MEDS ORDERED: [UNRECOGNIZED DRUG - CODE] (08:56)
[2017-03-13] MEDS ORDERED: ACET-1311 PO (08:56)
--- NOTE | 2017-03-13 08:58 | DIAGNOSTIC IMAGING REPORT ---
RIGHT KNEE 3 VIEWS CLINICAL HISTORY: Right knee pain. FINDINGS: AP, crosstable lateral, and sunrise portable views of the right knee are obtained. No prior studies are available for comparison at the time of dictation. The skeletal structures are well mineralized. No fracture is identified. There is minimal degenerative joint space narrowing. Degenerative beaking is seen in the tibial spine. There is a large superior patellar enthesophyte. A calcified fabella is incidentally noted. There is a large joint effusion. Prepatellar soft tissue edema is noted. IMPRESSION: Prepatellar soft tissue swelling and large joint effusion. No fracture is identified. Electronically signed by: Mihir Cervantes M.D. 03/13/2017 8:57 AM Dictated Date/Time: 03/13/2017 8:56 AM
[2017-03-13] MEDS ORDERED: OXYC1TAB3 PO (09:52)
[2017-03-13 10:07] VITALS: PULSE 81; O2SAT 93
--- NOTE | 2017-03-13 16:34 | EMERGENCY ROOM VISIT NOTE ---
History First contact with patient: 08:33 Chief Complaint: KNEEPAIN Stated Complaint: BAD KNEE History of Present Illness The patient is a 72 year old male who presents to the Emergency Room with complaints of "a bad knee". The patient reports that he noticed swelling in the knee yesterday. He denies any known injury. The patient reports a history of chronic bilateral knee pain. The patient denies any pain extending into the leg, thigh or back. He denies any fevers or chills. The patient denies history of knee swelling, and also denies any history of gout. He rates his discomfort a 9 out of 10 with weightbearing. Review of Systems 10 system review was performed and was negative except for pertinent positives and negatives as indicated in history of present illness Past Medical/Surgical History Medical Problems: (1) Heart disease (2) Kidney disease (3) Kidney stones Family History FH: cancer FH: heart disease FH: lung disease Hypertension Social History Smoking Status: Current Every Day Smoker Alcohol Use: occasionally Drug Use: none Marital Status: single Housing Status: lives alone Occupation Status: retired Current/Historical Medications Scheduled Acitretin (Acitretin), 25 MG PEG 3XWK Aspirin (Aspirin Chewable), 81 MG PO QAM Rivaroxaban (Xarelto), 15 MG PO DAILY Rosuvastatin Calcium (Crestor), 20 MG PO QAM Scheduled PRN Oxycodone Ir (Roxicodone Ir), 1 TAB PO Q4H PRN for Pain Miscellaneous Medications Acetaminophen (Tylenol), 325 MG PO Aspirin ([place] Aspirin) Physical Exam Vital Signs Date Time Temp Pulse Resp B/P (MAP) Pulse Ox O2 Delivery O2 Flow Rate FiO2 03/13/17 10:07 81 18 93 03/13/17 08:28 37.2 89 20 118/70 92 Room Air Physical Exam CONSTITUTIONAL: Healthy and well nourished. Alert and oriented X 3 with positive affect. Patient does not appear in any acute distress. HEENT: Normocephalic, atraumatic. Pupils equal, round and reactive. NECK: Full active range of motion without discomfort. MUSCULOSKELETAL: Examination of the right knee shows a 3+ joint effusion. There is no overriding erythema or increased warmth to palpation. Flexion and extension does not cause any discomfort. No obvious crepitance with range of motion. Ligamentous exam is normal. No popliteal masses. Pedal pulses are intact. INTEGUMENTARY: No rash or other significant dermatologic conditions noted. NEUROLOGIC: Right lower extremity is sensory intact. Medical Decision & Procedures ER Provider Diagnostic Interpretation: My interpretation of right knee x-ray shows a joint effusion without evidence for fracture or dislocation. Radiologist report is as follows: RIGHT KNEE 3 VIEWS CLINICAL HISTORY: Right knee pain. FINDINGS: AP, crosstable lateral, and sunrise portable views of the right knee are obtained. No prior studies are available for comparison at the time of dictation. The skeletal structures are well mineralized. No fracture is identified. There is minimal degenerative joint space narrowing. Degenerative beaking is seen in the tibial spine. There is a large superior patellar enthesophyte. A calcified fabella is incidentally noted. There is a large joint effusion. Prepatellar soft tissue edema is noted. IMPRESSION: Prepatellar soft tissue swelling and large joint effusion. No fracture is identified. ED Course Patient history and physical exam were performed. Nurse's notes were reviewed. Vital signs were reviewed and were normal. Clinical exam shows a notable right joint effusion. However, there is no overriding erythema or increased warmth to palpation to suggest septic joint or gout. X-rays of the right knee shows a joint effusion without any obvious bony lesions or significant arthritic changes. At this point, I did suggest that the patient follow-up with orthopedics for further reevaluation. The patient was encouraged to alternate ibuprofen and Tylenol as needed for pain. The patient was provided a prescription for OxyIR. He was warned about sedation and constipation while taking this medication, and instructed to avoid driving while taking this medication. He was instructed to return to the department for any developing redness, worsening swelling, pain or developing fever. The patient was happy with plan of care, and voiced understanding of all discharge instructions. He refused any analgesics prior to discharge. Medical Decision Examination and history are consistent with an unspecified intra-articular derangement. As indicated in previous section's, I do not suspect gout or septic joint. He has no significant worsening pain with range of motion activities. Ligamentous exam is normal. I suspect the patient has suffered some type of an injury that has caused an acute joint effusion/cellulitis. I do not feel that further arthrocentesis evaluation is warranted. [place] Drug Monitoring Program Search Results: patient reviewed within database Medication Reconcilliation Current Medication List: was personally reviewed by me Blood Pressure Screening Patient's blood pressure: Normal blood pressure Impression Primary Impression: Effusion, right knee Departure Information Dispostion Home / Self-Care Condition GOOD Prescriptions Oxycodone Ir (Roxicodone Ir) 5 Mg Tab 1 TAB PO Q4H Y for Pain, #15 TAB For Initial Treatment Prov: Omi Moreau PA 03/13/17 Referrals Gato Wing M.D. Martin, James S., M.D. Forms HOME CARE DOCUMENTATION FORM, IMPORTANT VISIT INFORMATION Patient Instructions My [facility] [place] Additional Instructions Apply Luis wrap to leg throughout the day, remove at nighttime. Intermittently apply ice to the knee. Tylenol 1000 mg every 6-8 hours for pain. Take OxyIR if needed for worse pain. Remember that OxyIR can make you drowsy and constipated. Follow-up with [facility] (Dr. Wing) for further reevaluation of the knee - call for an appointment, and tell them that you live closer to [place]. If you don't mind driving back to [place], you may also call Dr. Tijerina's office.
== END 2017-03-13 10:08 | disposition home or self-care (01) ==
LOC: C.EDB 08:19
DX: M25.461 Effusion, right knee (principal); Z79.01 Long term (current) use of anticoagulants; Z79.82 Long term (current) use of aspirin; Z79.899 Other long term (current) drug therapy; Z86.79 Personal history of other diseases of the circulatory system; Z87.442 Personal history of urinary calculi; Z87.448 Personal history of other diseases of urinary system; Z82.49 Family history of ischemic heart disease and other diseases of the circulatory system; Z83.6 Family history of other diseases of the respiratory system; F17.200 Nicotine dependence, unspecified, uncomplicated

== ENCOUNTER → 2017-04-06 | Outpatient (CLI) | payer OTHER ==
[~2017-04-06] MED LIST changes: +ACET-1311 PO; +OXYC1TAB3 PO; +XRL10 PO; +[UNRECOGNIZED DRUG - CODE]
--- NOTE | 2017-04-06 07:53 | DIAGNOSTIC IMAGING REPORT ---
KUB HISTORY: Follow-up study in a patient with nephrolithiasis N20.0 [id number] COMPARISON: KUB 04/19/2016. FINDINGS: The bowel gas pattern is non-obstructive. There is no organomegaly. Bilateral nephrolithiasis redemonstrated measuring up to 5 mm on the left. No definite ureteral calculi identified. Vascular calcifications are seen within the pelvis. Calcifications are also seen in the prostate gland. No pneumoperitoneum or pneumatosis. No fracture. Multilevel degenerative changes of the spine with degenerative changes also noted within the bilateral hips. IMPRESSION: Unchanged bilateral nephrolithiasis without ureteral calculi identified. Electronically signed by: Erick Churchill M.D. 04/06/2017 7:52 AM Dictated Date/Time: 04/06/2017 7:50 AM
== END | disposition home or self-care (01) ==
LOC: C.RAD 07:08
PROVIDERS: ATTEND Urology
DX: N20.0 Calculus of kidney (principal)

== ENCOUNTER → 2017-09-27 | Outpatient (CLI) | payer OTHER ==
[~2017-09-27] MED LIST changes: -OXYC1TAB3 PO
--- NOTE | 2017-09-27 12:13 | DIAGNOSTIC IMAGING REPORT ---
CHEST 2 VIEWS ROUTINE HISTORY: COPD with exacerbation. Shortness of breath. COMPARISON: Chest CT 01/25/2017. Chest x-ray 04/07/2016. FINDINGS: The lungs are hyperexpanded with apical predominant emphysematous changes. The heart is normal in size. No pleural effusions. No pneumothorax. Bilateral pulmonary nodules remain stable. Dominant nodule within the left upper lobe measures 1.8 cm. No focal lung consolidations to suggest pneumonia. IMPRESSION: 1. No acute process within the chest. 2. Emphysema. 3. Bilateral pulmonary nodules remain unchanged in size. Electronically signed by: Pee Quiles M.D. 09/27/2017 12:11 PM Dictated Date/Time: 09/27/2017 12:09 PM
== END | disposition home or self-care (01) ==
LOC: C.RAD 11:28
PROVIDERS: ATTEND Family Medicine
DX: J44.1 Chronic obstructive pulmonary disease with (acute) exacerbation (principal)

== ENCOUNTER → 2017-09-27 | Outpatient (CLI) | payer OTHER ==
--- NOTE | 2017-09-28 16:55 | PULMONARY FUNCTION TEST ---
PROCEDURE: Spirometry. Pre-bronchodilator spirometry reveals a moderately severe obstructive ventilatory defect even more pronounced at low lung volumes. There was a modest response to bronchodilator as evidenced by improved flow measured at low lung volumes. This may suggest the presence of reversible airways component. Clinical correlation is needed.
== END | disposition home or self-care (01) ==
LOC: C.RC 10:35
PROVIDERS: ATTEND Family Medicine
DX: J44.1 Chronic obstructive pulmonary disease with (acute) exacerbation (principal)

== ENCOUNTER 2020-07-16 08:00 | Observation (INO) ==
--- NOTE | 2020-06-25 11:54 | PAT Medication Instructions ---
Medication Instructions Date of Service June 25, 2020 Home Medications Medication Instructions Recorded nitroglycerin 0.4 mg sublingual 0.4 mg SL Q5M PRN #25 tab 09/03/18 tablet budesonide-formoterol HFA 80 2 puffs INH BID #10.2 gm 08/12/19 mcg-4.5 mcg/actuation aerosol inhaler varenicline 1 mg tablet 1 mg PO BID #60 tab 09/09/19 nitroglycerin 0.4 mg sublingual tablet 0.4 mg SL Q5M PRN budesonide-formoterol HFA 80 mcg-4.5 mcg/actuation aerosol inhaler 2 puffs INH BID varenicline 1 mg tablet 1 mg PO BID acetaminophen [Tylenol Extra Strength] 1,000 mg PO Q6H PRN acitretin 25 mg PO 3XWK aspirin [Aspir-81] 81 mg PO QAM calcipotriene-betamethasone 1 appln TOPICAL QAM rivaroxaban 20 mg PO QAM rosuvastatin 20 mg PO QAM Continue as directed nitroglycerin 0.4 mg sublingual tablet 0.4 mg SL Q5M PRN acitretin 25 mg PO 3XWK (OK to continue unless otherwise instructed by surgeon or prescriber) calcipotriene-betamethasone 1 appln TOPICAL QAM (OK to continue using as directed, but do not use on or around surgical site within 24 hours of surgery) ASK your prescriber and surgeon rivaroxaban 20 mg PO QAM Take morning of surgery With a small sip of water, OTHERWISE NOTHING TO EAT OR DRINK AFTER MIDNIGHT: nitroglycerin 0.4 mg sublingual tablet 0.4 mg SL Q5M PRN budesonide-formoterol HFA 80 mcg-4.5 mcg/actuation aerosol inhaler 2 puffs INH BID varenicline 1 mg tablet 1 mg PO BID acetaminophen [Tylenol Extra Strength] 1,000 mg PO Q6H PRN (if needed, may be taken up to four hours before surgery) aspirin [Aspir-81] 81 mg PO QAM rosuvastatin 20 mg PO QAM Take evening before surgery budesonide-formoterol HFA 80 mcg-4.5 mcg/actuation aerosol inhaler 2 puffs INH BID varenicline 1 mg tablet 1 mg PO BID acetaminophen [Tylenol Extra Strength] 1,000 mg PO Q6H PRN (if needed) Other Notes If you have any questions please call us at [phone] or [phone] or [phone] or [phone]
--- NOTE | 2020-06-28 09:58 | Anesthesiology Consultation ---
Date of Service June 28, 2020 Assessment & Plan (1) Encounter for pre-operative examination: COVID Status: As of 06/28 assessment, patient denies travel to endemic area, known exposure/sick contacts, or symptoms of COVID19. Patient instructed that they and their household members must follow strict social distancing guidelines, wear a mask in public and avoid travel/events/gatherings for 14 days prior to surgery. Preoperative COVID19 testing to be completed prior to surgery per surgeon's arrangements (pt reports 07/09). Patient made aware to self-isolate as much as possible between COVID testing and surgery. Pt is NOT yet vaccinated, plans to do after surgery. Seen by PCP (JAMES) 04/14/20 - chronic conditions noted to be stable, referred to ortho for surgical intervention for shoulder pain. Chart Review Chart Review: Acceptable Risk for Surgery and Patient seen in Pre Admission Testing Teaching & Discussion Instructed NPO after midnight before surgery, except medications with 15 cc of water. Medication instructions provided according to the PAT guidelines. History Surgery Operation Date: 07/16/20 14:15 Proposed Procedures p Left Total Shoulder Arthroplasty Breezy - Russell Sanchez DO Height/Weight Height: 6 ft 1 in Weight: 92.986 kg Allergies Allergy/AdvReac Type Severity Reaction Status Date / Time No Known Drug Allergies Allergy Unknown Verified 06/25/20 10:25 Medications Home Medications Medication Instructions Recorded Confirmed Last Taken nitroglycerin 0.4 mg sublingual 0.4 mg SL Q5M PRN #25 tab 09/03/18 06/25/20 Unknown tablet budesonide-formoterol HFA 80 2 puffs INH BID #10.2 gm 08/12/19 06/25/20 Unknown mcg-4.5 mcg/actuation aerosol inhaler acetaminophen [Tylenol Extra 1,000 mg PO Q6H PRN 06/25/20 06/25/20 Unknown Strength] acitretin 25 mg PO 3XWK 06/25/20 06/25/20 Unknown aspirin [Aspir-81] 81 mg PO QAM 06/25/20 06/25/20 Unknown calcipotriene-betamethasone 1 appln TOPICAL QAM 06/25/20 06/25/20 Unknown rivaroxaban 20 mg PO QAM 06/25/20 06/25/20 Unknown rosuvastatin 20 mg PO QAM 06/25/20 06/25/20 Unknown varenicline 1 mg tablet 1 mg PO BID #60 tab 06/28/20 Unknown Past Medical History Medical History (Updated 06/29/20 @ 08:43 by Troy Moya) Allergic rhinitis Arteriosclerotic coronary artery disease Non-occlusive disease per PCP ([facility]). Medically managed. Back pain Benign prostatic hyperplasia with urinary obstruction and other lower urinary tract symptoms Bilateral pulmonary embolism 05/15/2016 [facility]. Continues on Xarelto. Cigarette smoker COPD with exacerbation Erectile dysfunction Hidradenitis suppurativa Hypercholesteremia Kidney disease Microscopic hematuria Myocardial Infarction Pt reports this occurred in the late 70s/early 1980s, had heart cath, no stents placed. Per PCP, nonocclusive disease. Nephrolithiasis Psoriasis Pulmonary nodules SOB (shortness of breath) on exertion Exercise / Class Metabolic Activity II 4-5 Yardwork/Stairs/Walk up hill (Very active at home, only has to stop walking over long distances due to back pain; no CP or SOB with 1 FOS) Past Family History Family History Father Skin cancer Denies family history of Ovarian cancer Prostate cancer Myocardial infarction Breast cancer Colorectal cancer Past Surgical History Surgical History History of appendectomy History of lithotripsy History of repair of rotator cuff S/P cardiac cath With [facility] in late 's-early s per pt. Past Anesthesia History No Hx of Anesthesia Complications and No Family Hx of Anesthesia Complications History of PONV No Hx of PONV and No Hx of Motion Sickness Social History Smoking Status: Current some day smoker tobacco type: cigarettes Smoking cigarettes per day: OCC CIG, 2-3 per day, had quit but started again, w ants to restart chantix Do You Dip or Chew Tobacco: No Smoking End Date: QUIT 3 MONTHS AGO BUT HAS RELAPSED Hx Alcohol Use: Yes Alcohol type: beer alcohol intake frequency: 0-2 drinks per day (1-2 per day) Hx Substance Use: No Review of Systems Pt denies any recent chest pain, shortness of breath, palpitations, cough, fever, URI, or uncontrolled acid reflux. Physical Exam Vital Signs BP: 134/84 P: 74bpm SPO2: 96% RA T: 98.1 F R: 16 ENMT Mouth: + restricted motion of mouth (mouth does not open very wide), + dentures and + edentulous Thyromental Distance: > or= 3.5 Finger Breadths Mallampati Class: II Neck normal visual inspection; neck extension not limited Respiratory normal respiratory effort, lungs clear to auscultation + prolonged expiratory phase Cardiovascular RRR, no murmur, no edema Vessels: no carotid bruit Testing Laboratory Results 06/28/20 10:10 06/28/20 10:10 PT 11.6 Seconds (9.0-12.0) 06/28/20 10:10 INR 1.2 (0.9-1.1) H 06/28/20 10:10 APTT 34.5 Seconds (21.0-31.0) H 06/28/20 10:10 Blood Type B Positive 06/28/20 10:10 Antibody Screen NEGATIVE 06/28/20 10:10 *Pt is on Xarelto Electrocardiogram Date: 06/28/20 Sinus rhythm at 67bpm with PACs. Left axis deviation. RBBB. Inferior infarct (cited on or before 04/07/16). Compared with EKG from 05/15/16 EKG, PACs are now present. T wave inversion no longer evident in inferior leads. Chest X-Ray Date: 06/28/20 Findings: + NAD
--- NOTE | 2020-06-28 11:03 | XRay Report ---
XR chest Pre-admission PA/Lat CLINICAL HISTORY: Preoperative chest COMPARISON STUDY: September 2017 FINDINGS: The cardiac and mediastinal contours remain stable. There is no failure. There is no focal pulmonary consolidation. There are no pleural effusions. There are stable bilateral pulmonary nodules .[ IMPRESSION: No active disease in the chest. ACT 112: Negative or not required by law. Electronically signed by: Olu Mathews M.D. 06/28/2020 11:01 AM
[2020-06-28 12:52] LABS: Basophils # (auto) 0.02 K/uL (0-0.2); Basophils % (auto) 0.2 %; Eosinophils # (auto) 0.09 K/uL (0-0.5); Eosinophils % (auto) 1.1 %; Hemoglobin 16.7 g/dL (14.0-18.0); Immature Granulocytes # (auto) 0.01 K/uL (0.00-0.02); Immature Granulocytes % (auto) 0.1 %; Lymphocytes # (auto) 1.66 K/uL (1.2-3.4); Lymphocytes % (auto) 20.4 %; Mean Corpuscular Hemoglobin 32.1 pg (25-34); Mean Corpuscular Hgb Conc 33.4 g/dL (32-36); Mean Corpuscular Volume 96.2 fL (80-100); Mean Platelet Volume 10.1 fL (7.4-10.4); Monocytes # (auto) 0.62 K/uL (0.11-0.59); Monocytes % (auto) 7.6 %; Neutrophils # (auto) 5.75 K/uL (1.4-6.5); Neutrophils % (auto) 70.6 %; Platelet Count 209 K/uL (130-400); RDW Coefficient of Variation 13.7 % (11.5-14.5); RDW Standard Deviation 48.6 fL (36.4-46.3); White Blood Count 8.15 K/uL (4.8-10.8)
[2020-06-28 13:05] LABS: BUN Creatinine Ratio 14.8 (10-20); Calcium 9.6 mg/dl (8.5-10.1); Creatinine Clr Calc Pharmacy 79.6 ml/min; Est GFR (African American) 94.6; Est GFR (Non-African American) 81.6; Potassium 4.8 mmol/L (3.5-5.1)
[2020-06-28 13:07] LABS: INR 1.2 (0.9-1.1); Partial Thromboplastin Ratio 1.3; Partial Thromboplastin Time 34.5 Seconds (21.0-31.0); Prothrombin Time 11.6 Seconds (9.0-12.0)
--- NOTE | 2020-06-29 07:14 | Electrocardiogram Report ---
Test Reason : Blood Pressure : / mmHG Vent. Rate : 067 BPM Atrial Rate : 067 BPM P-R Int : 204 ms QRS Dur : 128 ms QT Int : 434 ms P-R-T Axes : 079 -80 051 degrees QTc Int : 458 ms Sinus rhythm with Premature atrial complexes Left axis deviation Right bundle branch block Inferior infarct (cited on or before 07-APR-2016) Abnormal ECG When compared with ECG of 15-MAY-2016 10:25, Premature atrial complexes are now Present T wave inversion no longer evident in Inferior leads Confirmed by Kal Hernández ([id number]) on 06/29/2020 7:14:18 AM Referred By: Russell Sanchez Confirmed By:Kal Hernández
--- NOTE | 2020-07-15 12:51 | History & Physical Report ---
Date of Service July 15, 2020 Assessment & Plan (1) Rotator cuff tear arthropathy of left shoulder: We will proceed with a left reverse shoulder arthroplasty. Postoperatively it would placed in an arm sling and kept overnight in the hospital for postoperative medical management. He will be placed back on his Xarelto. He plans to use home health in [place] upon discharge. History of Present Illness Chief Complaint: Rotator cuff arthropathy of the left shoulder . Primary Care Provider: Mihir Ybarra MD Mika is a pleasant 75-year-old male who is been dealing with a several year history of increasing left shoulder pain and weakness. He has a history of a right rotator cuff repair done by Dr. Tijerina in the past. His left shoulder is painful and weak. 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 After failing conservative treatment, he has elected to proceed with a left reverse shoulder arthroplasty. . Allergies Allergy/AdvReac Type Severity Reaction Status Date / Time No Known Drug Allergies Allergy Unknown Verified 06/25/20 10:25 Home Medications Medication Instructions Recorded Confirmed Type nitroglycerin 0.4 mg sublingual 0.4 mg SL Q5M PRN #25 tab 09/03/18 06/25/20 Rx tablet budesonide-formoterol HFA 80 2 puffs INH BID #10.2 gm 08/12/19 06/25/20 Rx mcg-4.5 mcg/actuation aerosol inhaler acetaminophen [Tylenol Extra 1,000 mg PO Q6H PRN 06/25/20 06/25/20 History Strength] acitretin 25 mg PO 3XWK 06/25/20 06/25/20 History aspirin [Aspir-81] 81 mg PO QAM 06/25/20 06/25/20 History calcipotriene-betamethasone 1 appln TOPICAL QAM 06/25/20 06/25/20 History rivaroxaban 20 mg PO QAM 06/25/20 06/25/20 History rosuvastatin 20 mg PO QAM 06/25/20 06/25/20 History varenicline 1 mg tablet 1 mg PO BID #60 tab 06/28/20 Rx Past Med/Surg History Medical History Allergic rhinitis Arteriosclerotic coronary artery disease Non-occlusive disease per PCP ([facility]). Medically managed. Back pain Benign prostatic hyperplasia with urinary obstruction and other lower urinary tract symptoms Bilateral pulmonary embolism 05/15/2016 [facility]. Continues on Xarelto. Cigarette smoker COPD with exacerbation Erectile dysfunction Hidradenitis suppurativa Hypercholesteremia Kidney disease Microscopic hematuria Myocardial Infarction Pt reports this occurred in the late 70s/early 1980s, had heart cath, no stents placed. Per PCP, nonocclusive disease. Nephrolithiasis Psoriasis Pulmonary nodules SOB (shortness of breath) on exertion Surgical History History of appendectomy History of lithotripsy History of repair of rotator cuff S/P cardiac cath With CT in late s-early per pt. Family History Father Skin cancer Denies family history of Ovarian cancer Prostate cancer Myocardial infarction Breast cancer Colorectal cancer Social History Smoking Status: Current some day smoker Age Started Using Tobacco: 18; Cigarettes Per Day: OCC CIG, 2-3 per day, had quit but started again, wants to restart chantix; Second Hand Exposure: Yes (FAMILY SMOKED); Hx Alcohol Use: Yes Alcohol type: beer Hx Substance Use: No Preferred Language: Iraqi Communication Ability: Impaired Visual Impairment: Limited Hearing Ability: Use of Hearing Aid Carton Folder Required: No Beliefs That Will Affect Care: None marital status: Single Current Living Situation: Alone current occupational status: retired Feels Safe at Home: Yes Childhood Exposure to Second-Hand Smoke: Yes caffeine: Yes (coffee, tea) Dental Care, Regularly: No Physical Activity Frequency: Daily Seatbelt Use: always Sunscreen Use: No Assistive Devices: Denture - Upper, Denture - Lower, Glasses and Hearing Aid - Bilateral Review of Systems All systems reviewed & are unremarkable except as noted in HPI & below. Physical Exam On physical examination of the left shoulder, he has near full active range of motion. He has 3 out of 5 motion of the full can testing and 3 out of 5 motion with external rotation. He has a negative belly press test. He has pain over the anterior glenohumeral joint line. . Constitutional WD/WN, vitals as above Eyes PERRL, conjunctivae normal, anicteric sclerae ENMT external ear and nose normal, oropharynx normal Neck trachea midline, no thyromegaly Respiratory normal respiratory effort Cardiovascular RRR, no murmur, no edema Gastrointestinal (Abdomen) normal bowel sounds, soft, nontender, no hepatosplenomegaly Psychiatric A+Ox3, euthymic affect Results & Data Results & Data Laboratory Results . Diagnostic Findings X-rays of the left shoulder do show signs of rotator cuff arthropathy with superior migration of the humeral head on the glenoid and acetabular rotation of the acromion. . PG Care Time/CCT Total # of Minutes Spent Total Time Spent with Patient: Total time spent is greater than 50% in coordination of care (as documented) at patient's floor/unit and/or counseling patient: Coding Level of Care Code None Diagnoses Rotator cuff tear arthropathy of left shoulder M75.102; M12.812
[~2020-07-16 08:00] MED LIST changes: -ACET-1311 PO; +ACETAMINOPHEN 500 MG TAB PO SCH; -ACIT1CAP2 PEG; -ASPCH81X PO; +BUPIVACAINE 0.5 % 5 MG/1 ML PF 10ML VIAL ONE; +FAMOTIDINE 20 MG TAB PO SCH; +GABAPENTIN 300 MG CAP PO SCH; +LR 15ML/HR IV SCH; +LR 60ML/HR IV SCH; +ROPIVACAINE 0.5% HCL/PF 150 MG, BUPIVACAINE 0.75% MPF 20 ML, EPINEPHrine 30MG/30ML (OR ... INSTIL SCH; -ROSU20TA PO; +TRANEXAMIC ACID 1,000 MG **IV Intra-op IV SCH; +TRANEXAMIC ACID 1,000 MG **IV Pre-op IV SCH; -XRL10 PO; -[UNRECOGNIZED DRUG - CODE]; +ceFAZolin 2000MG 2,000 MG/15 ML SYR IV SCH; +dexAMETHasone 4 MG TAB PO SCH
--- NOTE | 2020-07-16 09:04 | History & Physical Bridge Note ---
Date of Service July 16, 2020 History & Physical Bridge Note I have examined the patient, reviewed the History & Physical and in the interval since the performance of the History & Physical I have noted the following changes of clinical significance: no changes noted
[2020-07-16] MEDS ORDERED: fentaNYL citrate 100 MCG/2 ML VIAL ONE (09:06)
[2020-07-16] MEDS ORDERED: NEOSTIGMINE METHYLSULFATE 1 MG/ML 10ML VIAL ONE (09:06)
[2020-07-16] MEDS ORDERED: LIDOCAINE 2% 2 ML VIAL/AMP(20MG/ML) INFIL ONE (09:06)
[2020-07-16] MEDS ORDERED: GLYCOPYRROLATE 0.2 MG/ML VIAL ONE (09:06)
[2020-07-16] MEDS ORDERED: ONDANSETRON INJ 2 MG/ML 2 ML VIAL ONE (09:06)
[2020-07-16] MEDS ORDERED: PROPOFOL IV EMULSION 10 MG/ML 20 ML VIAL IV ONE (09:06)
[2020-07-16] MEDS ORDERED: DEXAMETHASONE SOD INJ 4 MG/ML VIAL ONE (09:06)
[2020-07-16] MEDS ORDERED: MIDAZOLAM HCL 1 MG/ML 2ML VIAL ONE (09:07)
[2020-07-16] MEDS ORDERED: ORTHO JOINT ANESTHETIC ONE (09:27)
[2020-07-16] MEDS ORDERED: LABETALOL HCL IV 5 MG/ML 20ML IV PRN (09:36)
[2020-07-16] MEDS ORDERED: ONDANSETRON INJ 2 MG/ML 2 ML VIAL IV PRN ×2 (09:36→13:09)
[2020-07-16] MEDS ORDERED: HYDROmorphone INJ 1 MG/ML SYRINGE IV PRN (09:36)
[2020-07-16] MEDS ORDERED: ATROPINE SULFATE 0.1 MG/ML 10ML SYR IV PRN (09:36)
--- NOTE | 2020-07-16 11:21 | Operative Report ---
PG Post Operative Report Pre & Post Diagnosis Operation Date: 07/16/20 10:30 Pre-Op Diagnosis: Rotator cuff arthropathy of the left shoulder with tendinopathy of the long head of the biceps tendon Post-Op Diagnosis: Rotator cuff arthropathy of the left shoulder with tendinopathy of the long head of the biceps tendon I identified the patient and participated in the time-out.: Yes Procedure Operation Date: 07/16/20 10:30 Actual Procedures p Left Total Shoulder Arthroplasty Reverse(Left) with open biceps tenodesis as a distinct and separate procedure (modifier 59)- Russell Sanchez DO Surgeon Russell Sanchez DO Director Digital Advertising Russell Jiménez PAC Estimated Blood Loss 200 Findings Consistent with Post-Op Diagnosis Specimens Left humeral head Complications none Disposition Disposition: Recovery Room Indications Mika is a pleasant 75-year-old male who is been dealing with chronic increasing left shoulder pain and weakness. X-rays and clinical examination have been diagnostic for cuff arthropathy of the left shoulder. After failing conservative treatment, he elected proceed with a left reverse shoulder arthroplasty. Description of Procedure A CPT code modifier 59: The long head of the biceps tendon was enlarged and inflamed consistent with tendinopathy. A tenodesis was opted. This was a separate and distinct portion of the procedure. For these reasons, a CPT code modifier 59 will be added to this case. Implants used: I used a [employer] Comprehensive reverse total shoulder arthroplasty system with a size 16 press fit micro humeral stem, a +3 offset humeral tray and a standard humeral bearing, a 25 mm small augment baseplate with a 6.5 mm central screw and superior and inferior locking screws, and a size 40 mm eccentric glenosphere. Mika arrived at [facility] for the above procedure. He was seen in the preoperative holding area and the operative extremity was identified and signed. He was given a preoperative antibiotic, TXA, and an interscalene nerve block. He was taken back to the operating room, laid on table in supine position, and put under general anesthesia. He was then put into the beachchair position. The shoulder was then prepped and draped in sterile fashion. A timeout was done and the patient and the operative extremity was properly identified. A deltopectoral approach was used. Dissection was taken down through the fascia and the deltoid was retracted laterally and the conjoined tendon was retracted medially. The anterior shoulder was exposed. The biceps groove was opened up and the biceps tendon was examined extensively. The biceps tendon demonstrated enlargement and inflammatory changes consistent with longstanding inflammation in the context of osteoarthritis and cuff arthropathy. The long head of the biceps tendon was then tenodesed to the upper border of the pectoralis major. This was a separate and distinct portion of the procedure. The subscapularis was then directly released off the lesser tuberosity with a peel technique. The inferior capsule was released and the humeral head was dislocated. A canal finding reamer was sent down the center of the humeral canal. Sequent ial reaming up to a size 16 reamer was done. Off that reamer, a proximal humeral resection guide was placed. The proximal humerus was resected at 135 of inclination and 25 of retroversion. Osteophytes were then removed and the glenoid was exposed. Time was spent doing a complete capsular and labral release. The glenoid guide was then placed in the inferior aspect of the glenoid. A 3.2 mm Steinmann pin was then placed into the glenoid vault at 10 of inclination. The glenoid baseplate was then reamed. The final size 25 mm small augment baseplate was then impacted in the place. A 6.5 mm central screw was then placed followed by superior and inferior locking screws. A 40 mm eccentric glenosphere was then impacted into place. Surrounding soft tissues were then injected with 100 cc an orthopedic pain control cocktail. The proximal humerus was then exposed. Sequential broaching of the humerus up to a size 16 broach was done. Off that broach a +3 offset humeral tray was trialed. The shoulder was then reduced, brought through a full range of motion, and felt to be stable. The shoulder was then dislocated and the broach was removed. The final size 16 micro press-fit humeral stem was then impacted into place. A standard humeral bearing was then snapped onto a +3 offset humeral tray. The humeral tray was then impacted onto the humeral stem. The shoulder was once again reduced, brought through a full range of motion, and felt to be stable. The subscapularis was then tenodesed back to the lesser tuberosity with transosseous FiberWire sutures and side to side sutures with the arm in 45 of external rotation. A dilute betadyne lavage was then done for 3 minutes. The joint was then irrigated with normal saline solution. Hemostasis was obtained. The interval was closed with 2-0 Vicryl suture. The skin was then closed with 2-0 Vicryl and tiago. A Silverlon dressing was placed and the arm was rested in a regular arm sling. He was then extubated and transferred to a hospital bed. He taken to the postanesthesia care unit in stable condition. He tolerated the procedure well. Russell Jiménez PA-C, was present for the entire procedure. He was critical for patient positioning, prepping, draping, retraction exposure, wound closure and application of sterile dressing. I attest to the content of the Intraoperative Record and any orders documented therein. Any exceptions are noted below.
--- NOTE | 2020-07-16 12:07 | XRay Report ---
XR shoulder LT min 2V routine CLINICAL HISTORY: Post shoulder surgery COMPARISON STUDY: None. FINDINGS: Status post reverse left total shoulder arthroplasty. The hardware is intact. Skin tiago are in place. No fracture or dislocation. IMPRESSION: Status post reverse left total shoulder arthroplasty. No evidence for hardware complicat ion. ACT 112: Negative or not required by law. Electronically signed by: Pee Quiles M.D. 07/16/2020 12:05 PM
--- NOTE | 2020-07-16 12:33 | Anesthesiology Progress Note ---
Date of Service July 16, 2020 Anesthesia Post Procedure Vital Signs Vital Signs: Temp Pulse Pulse Resp BP Pulse Ox 07/16/20 12:15 65 19 120/76 96 07/16/20 12:05 69 17 125/79 97 07/16/20 11:55 74 17 127/80 93 07/16/20 11:45 67 15 128/77 94 07/16/20 11:39 35.9 C L 93 H 12 150/90 H 97 07/16/20 08:40 36.3 C L 74 20 146/86 H 96 Pain Intensity Left Shoulder: Pain Intensity: 0 Transfer of Care Handoff Completed per policy Notes Mental Status: alert / awake / arousable Patient Amnestic to Procedure: Yes Nausea / Vomiting: adequately controlled Pain: adequately controlled Airway Patency, RR, SpO2: stable & adequate BP & HR: stable & adequate Hydration State: stable & adequate Anesthetic Complications: no major complications apparent
[2020-07-16] MEDS ORDERED: MAGNESIUM HYDROXIDE SUSP 30 ML UDC PO PRN (13:09)
[2020-07-16] MEDS ORDERED: NITROGLYCERIN SL 0.4 MG/TAB TAB SL PRN (13:09)
[2020-07-16] MEDS ORDERED: bisacodyL 10 MG SUPP PR PRN (13:09)
[2020-07-16] MEDS ORDERED: NALOXONE HCL 0.4 MG/1 ML VIAL/CARP IV PRN (13:09)
[2020-07-16] MEDS ORDERED: HYDROmorphone INJ 0.5 MG/0.5 ML SYR IV PRN (13:09)
[2020-07-16] MEDS ORDERED: oxyCODONE HCL IR 5 MG TAB (IMMEDIATE RELEASE) PO PRN (13:09)
[2020-07-16] MEDS ORDERED: METOCLOPRAMIDE HCL INJ 5 MG/ML 2 ML VIAL IV PRN (13:09)
[2020-07-16] MEDS: SODIUM CHLORIDE 0.9% 1000ML 1,000 ML IV SCH (14:15)
[2020-07-16] MEDS: KETOROLAC TROMETHAMINE 15 MG/ML VIAL IV SCH ×2 (14:17→20:21)
[2020-07-16] MEDS ORDERED: PNEUMOCOCCAL POLYSACCHARIDES 25 MCG/0.5 ML VIAL/SYR IM ONE (14:27)
--- NOTE | 2020-07-16 14:38 | Consultation ---
Date of Consultation July 16, 2020 Assessment & Plan (1) Choking episode: happened after he was trying to eat chicken but he did not have his teeth he was in distress and RN reported his face was purple Heimlich was performed but nothing came out except some clear liquid however, he felt better after the Heimlich and saturations 99% on 4L when I arrived lungs clear bilaterally with good flow, no stridor over neck still has a weird sensation in his throat but does not feel short of breath discussed with Dr. Flores, will get CT neck and chest to look for foreign body in airway if it is clear then he is okay if there is foreign body in large airway then will ask Dr. Flores to evaluate (2) Aspiration into lower respiratory tract: CT chest with bilateral infiltrates in lower lobes, more on left side certainly possible that he aspirated during choking spell and Heimlich will cover for now with Zosyn IV (3) Esophageal injury: unsure if this is actual injury, could be result of Heimlich maneuver no chest pain, no epigastric pain, no dyspnea will be cautious for now, strict NPO, no meds or sips Protonix drip Zosyn for empiric coverage for GI translocation consult GI plan to repeat imaging with swallow study with contrast History of Present Illness Requesting Physician: Dr. Sanchez Reason for Consultation: Luis Alberto heath Attending Physician: Russell Sanchez, DO History of Present Illness 75 yo male who had Left Total Shoulder Arthroplasty Reverse(Left) with open biceps tenodesis as a distinct and separate procedure today with Dr. Sanchez. He was in his room in the afternoon eating a late lunch when he started to experience choking episode. He was having a difficult time chewing his chicken because he did not have his dentures in place. Per the RN, he was in a lot of distress, face was cyanotic but he was able to speak. Heimlich maneuver performed, no solid food was coughed up but he did have some liquids come out, unclear if he coughed them up or vomited because he had some dry heaves immediately afterwards. I arrived shortly after he had the Heimlich maneuver. He was not in distress, he was 99% on 4L, vitals stable. He was moving air in all lung [place] and no stridor on auscultation of the neck. Examined back of throat, no food could be seen. Discussed with Dr. Flores with concern that maybe a piece of chicken made it into his airway, he recommended CT chest and CT neck. In the time frame of 10 minutes I titrated him down to room air and he felt fine, just still had a "weird" sensation in his throat. He had a few episodes of dry heaves, just some liquids came up. Gave him a dose of Zofran and provided relief. CT chest did not show any debris in his main airways, it did show possible aspiration into low lungs with infiltrates bilaterally, more on left side which would be odd. It also showed fluid filled esophagus that was dilated, thickened alfaro. Lastly, it showed some fluid around the esophagus with foci of gas possibly in the wall of the esophagus. Could indicate esophageal injury. discussed results with patient and his daughter. Explained that we will have him be strict NPO, Protonix IV, Zosyn IV and consult GI for their recommendations. Dr. Sanchez was updated of the events of the afternoon. Allergies Allergy/AdvReac Type Severity Reaction Status Date / Time No Known Drug Allergies Allergy Unknown Verified 07/16/20 08:33 Home Medications Medication Instructions Recorded Confirmed Type nitroglycerin 0.4 mg sublingual 0.4 mg SL Q5M PRN #25 tab 09/03/18 07/16/20 Rx tablet budesonide-formoterol HFA 80 2 puffs INH BID #10.2 gm 08/12/19 07/16/20 Rx mcg-4.5 mcg/actuation aerosol inhaler acetaminophen [Tylenol Extra 1,000 mg PO Q6H PRN 06/25/20 07/16/20 History Strength] acitretin [Soriatane] 25 mg PO 3XWK 06/25/20 07/16/20 History aspirin [Aspir-81] 81 mg PO QAM 06/25/20 07/16/20 History calcipotriene-betamethasone 1 appln TOPICAL QAM 06/25/20 07/16/20 History [Taclonex] rivaroxaban 20 mg PO QAM 06/25/20 07/16/20 History rosuvastatin [Crestor] 20 mg PO QAM 06/25/20 07/16/20 History varenicline 1 mg tablet 1 mg PO BID #60 tab 05/10/21 05/28/21 Rx Patient History Medical History Allergic rhinitis Arteriosclerotic coronary artery disease Non-occlusive disease per PCP (JAMES). Medically managed. Back pain Benign prostatic hyperplasia with urinary obstruction and other lower urinary tract symptoms Bilateral pulmonary embolism 05/15/2016 [facility]. Continues on Xarelto. Cigarette smoker COPD with exacerbation Erectile dysfunction Hidradenitis suppurativa Hypercholesteremia Kidney disease Microscopic hematuria Myocardial Infarction Pt reports this occurred in the late 70s/early 1980s, had heart cath, no stents placed. Per PCP, nonocclusive disease. Nephrolithiasis Psoriasis Pulmonary nodules SOB (shortness of breath) on exertion Surgical History History of appendectomy History of lithotripsy History of repair of rotator cuff S/P cardiac cath With CO in late 's-early s per pt. Family History Father Skin cancer Denies family history of Ovarian cancer Prostate cancer Myocardial infarction Breast cancer Colorectal cancer Social History Smoking Status: Current some day smoker Age Started Using Tobacco: 18; Cigarettes Per Day: OCC CIG, 2-3 per day, had quit but started again, wants to restart chantix; Smoking End Date: QUIT 3 MONTHS AGO BUT HAS RELAPSED; Second Hand Exposure: Yes (FAMILY SMOKED); Do You Dip or Chew Tobacco: No; Hx Alcohol Use: Yes Alcohol type: beer Hx Substance Use: No Preferred Language: [place] Communication Ability: Impaired Communication Ability Comment: VERY HARD OF HEARING Visual Impairment: Limited Hearing Ability: Use of Hearing Aid Transmitter Operator Required: No Beliefs That Will Affect Care: None marital status: Single Current Living Situation: Alone current occupational status: retired Other Information That Helps Us Care for You: No Feels Safe at Home: Yes Safety Concerns: Feels Safe At This Time Childhood Exposure to Second-Hand Smoke: Yes caffeine: Yes (coffee, tea) Dental Care, Regularly: No Physical Activity Frequency: Daily Seatbelt Use: always Sunscreen Use: No Assistive Devices: Denture - Upper, Denture - Lower, Glasses and Hearing Aid - Bilateral Review of Systems Review of Systems: All systems reviewed & are unremarkable except as noted in Subjective Physical Exam Constitutional: well developed, well nourished and comfortable; no acute distress Eyes: PERRL, conjunctivae normal, anicteric sclerae ENMT: external ear and nose normal, oropharynx normal Neck: trachea midline, no thyromegaly (no stridor) Respiratory: normal respiratory effort, lungs clear to auscultation Cardiovascular: RRR, no murmur, no edema Gastrointestinal (Abdomen): normal bowel sounds, soft, nontender, no hepatosplenomegaly Musculoskeletal: Head/Neck/Chest: normocephalic, head atraumatic and neck supple Extremities: strength 5/5 throughout; no cyanosis, no clubbing and no petechiae Shoulder: + shoulder abnormal to inspection (left shoulder in sling, bandaged) Skin: no rashes, warm and dry Neurologic: CN's II-XI intact bilaterally, deep tendon reflexes 2+ bilaterally, moves all extremities and awake; + abnormal sensation to monofilament (lack of sensation in left hand, arm from nerve block) and no focal motor deficits Psychiatric: A+Ox3, euthymic affect Lymphatic: no cervical or axillary lymphadenopathy Results & Data ([facility]) Vital Signs (Past 12 Hours) Vital Signs Temp Pulse Pulse Pulse Resp BP Pulse Ox 07/16/20 14:07 36.3 C L 89 18 144/97 H 95 07/16/20 13:20 72 20 119/72 96 07/16/20 12:25 36.4 C L 69 20 122/74 94 07/16/20 12:15 65 19 120/76 96 07/16/20 12:05 69 17 125/79 97 07/16/20 11:55 74 17 127/80 93 07/16/20 11:45 67 15 128/77 94 07/16/20 11:39 35.9 C L 93 H 12 150/90 H 97 07/16/20 08:40 36.3 C L 74 20 146/[address] soft tissue neck 1. Dilated fluid-filled esophagus with diffuse thickening of its wall is incompletely evaluated on this nondedicated exam. Please correlate above- mentioned findings with prior history of esophageal abnormalities. Further evaluation with endoscopy might be considered. 2. Emphysema. 3. Partially visualized subcutaneous emphysema in left anterior chest wall, might represent postoperative changes. Please correlate with prior surgical history. CT chest 1. Small amount of fluid surrounding the mid to distal esophagus. There are also 2 small foci of gas within the mediastinum as described above which could be either within the wall of the esophagus or extraluminal. Therefore, these findings are concerning for an esophageal injury/small perforation. A dedicated fluoroscopy study of the esophagus or follow-up chest CT following administration of oral contrast can be used for further evaluation. 2. Mild emphysema. 3. Patchy densities within the bilateral lower lobes, left greater than right. This could represent atelectasis or pneumonia. 4. Postoperative changes within the left shoulder consistent with a recent shoulder arthroplasty. 5. Scattered pulmonary nodules remain stable. 6. These findings were called/faxed to the referring physician following dictation. Medications Administered Current Inpatient Medications Acetaminophen (Acetaminophen 500 Mg Tab) 1,000 mg PO Q8 KRIS Stop: 08/15/20 13:59 Last Admin: 07/16/20 16:32 Dose: Not Given Documented by: Aspirin (Aspirin 81 Mg Ectab) 81 mg PO QAM KRIS Stop: 08/16/20 08:59 Bisacodyl (Bisacodyl 10 Mg Supp) 10 mg [place] DAILY PRN PRN Reason: Constipation Stop: 08/15/20 13:08 Dexamethasone (Dexamethasone 4 Mg Tab) 8 mg PO TODAY@08 KRIS Stop: 07/17/20 08:01 Docusate Sodium (Docusate Sodium 100 Mg Cap) 100 mg PO BID KRIS Stop: 08/15/20 20:59 Last Admin: 07/16/20 20:22 Dose: Not Given Documented by: Fluticasone/Vilanterol (Fluticasone/Vilanterol 100/25mcg 14 Puffs/Inhaler) 1 puffs INH DAILY KRIS Stop: 08/16/20 08:59 Hydromorphone HCl (Hydromorphone Inj 0.5 Mg/0.5 Ml Syr) 0.5 mg IV Q4H PRN PRN Reason: Pain or Pre PT Stop: 07/30/20 13:08 Sodium Chloride (Nss 1000ml) 1,000 mls @ 100 mls/hr IV .Q10H KRIS Stop: 07/17/20 06:00 Last Admin: 07/16/20 14:15 Dose: 100 mls/hr Documented by: Cefazolin Sodium (Ancef 2000mg) 2,000 mg in 15 mls @ 3.75 mls/min IV Q8H [facility]; Protocol Stop: 07/17/20 02:03 Last Admin: 07/16/20 17:36 Dose: 3.75 mls/min Documented by: Pantoprazole Sodium 40 mg/ (Dextrose) 100 mls @ 20 mls/hr IV Q5H [facility] Stop: 08/15/20 16:14 Last Admin: 07/16/20 17:33 Dose: 8 mg/hr, 20 mls/hr Documented by: Piperacillin Sod/Tazobactam (Sod 3.375 gm/ Dextrose) 115 mls @ 28.75 mls/hr IV Q8H [facility] Stop: 07/26/20 21:59 Ketorolac Tromethamine (Ketorolac Tromethamine 15 Mg/Ml Vial) 15 mg IV Q6H [facility] Stop: 07/18/20 07:10 Last Admin: 07/16/20 20:21 Dose: 15 mg Documented by: Magnesium Hydroxide (Magnesium Hydroxide Susp 30 Ml Udc) 30 ml PO Q6H PRN PRN Reason: Constipation Stop: 08/15/20 13:08 Metoclopramide HCl (Metoclopramide Hcl Inj 5 Mg/Ml 2 Ml Vial) 10 mg IV Q6H PRN PRN Reason: Nausea And Vomiting Stop: 08/15/20 13:08 Miscellaneous (Acitretin: Order Awaiting Action) 1 ea N/A QS [facility] Stop: 08/15/20 15:59 Last Admin: 07/16/20 17:29 Dose: Not Given Documented by: Miscellaneous (Taclonex: Order Awaiting Action) 1 ea N/A QS [facility] Stop: 08/15/20 15:59 Last Admin: 07/16/20 17:30 Dose: Not Given Documented by: Miscellaneous Information (Piperacill/Tazobac Consult Active) 1 ea N/A UD PRN PRN Reason: Consult Stop: 08/15/20 16:28 Multivitamins (Multivitamin Tab) 1 tab PO QAM [facility] Stop: 08/16/20 08:59 Naloxone HCl (Naloxone Hcl 0.4 Mg/1 Ml Vial/Carp) 0.1 mg IV Q5M PRN PRN Reason: Oversedation/Resp Depression Stop: 08/15/20 13:08 Nitroglycerin (Nitroglycerin Sl 0.4 Mg/Tab Tab) 0.4 mg SL Q5M PRN PRN Reason: chest pain Stop: 08/15/20 13:08 Ondansetron HCl (Ondansetron Inj 2 Mg/Ml 2 Ml Vial) 4 mg IV Q6H PRN PRN Reason: Nausea And Vomiting Stop: 08/15/20 13:08 Last Admin: 07/16/20 14:07 Dose: 4 mg Documented by: Oxycodone HCl (Oxycodone Hcl Ir 5 Mg Tab (Immediate Release)) 5 - 10 mg PO Q4H PRN PRN Reason: Pain or Pre PT Stop: 07/30/20 13:08 Rivaroxaban (Rivaroxaban 20 Mg Tab) 20 mg PO QDD [facility] Stop: 08/16/20 16:29 Rosuvastatin Calcium (Rosuvastatin Calcium 20 Mg Tab) 20 mg PO QAM [facility] Stop: 08/16/20 08:59 Sennosides (Senna 8.6 Mg Tab) 17.2 mg PO HS [facility] Stop: 08/15/20 20:59 Last Admin: 07/16/20 20:22 Dose: Not Given Documented by: Varenicline (Varenicline 1 Mg Tab) 1 mg PO BID [facility] Stop: 08/15/20 20:59 Last Admin: 07/16/20 20:22 Dose: Not Given Documented by: PG Care Time/CCT Total # of Minutes Spent Total Time Spent: 45 Total Time Spent with Patient: Total time spent is greater than 50% in coordination of care (as documented) at patient's floor/unit and/or counseling patient: Prolonged Care Time Prolonged Care Time: No Critical Care Time: Yes Total Critical Care Time: 45 This case had a high probability of a clinically significant, sudden, or life threatening deterioration of this patient's condition which required my full and direct attention, intervention and personal management. Coding Level of Care Code 79542 Inpt Consult Level 3 Diagnoses Choking episode R09.89 Aspiration into lower respiratory tract T17.800A Esophageal injury S27.819A Additional Codes Critical Care Time - Critical Care Time: Yes ([id number])
--- NOTE | 2020-07-16 15:08 | CT Scan Report ---
CT chest diagnostic wo con CT DOSE: 930.00 mGy.cm HISTORY: choking on food ?residual TECHNIQUE: Multiaxial CT images of the chest were performed without contrast. A dose lowering techni que was utilized adhering to the principles of ALARA. COMPARISON: Chest CT 04/22/2020. FINDINGS: The central airways are patent. Small amount of fluid surrounding the mid to distal esophag us. The proximal esophagus is borderline dilated and filled with fluid. There are 2 small foci of gas within the mediastinum on images 129 and 151 which could be either within the wall of the esophagus or extraluminal. Therefore, these findings raise the possibility of an esophageal injury or possible perforation. Limited views of the upper abdomen demonstrate normal liver, spleen, and adrenal glands. Normal caliber thoracic aorta. No mediastinal hilar lymphadenopathy. The heart is top normal in size . Patchy densities within the bilateral lower lobes, left greater than right. This could represent at electasis or pneumonia. A few scattered calcified and noncalcified pulmonary nodules remain unchanged . Dominant nodule within the superior segment of the left lower lobe measures 1.8 cm. Mild emphysema. No pneumothorax. Suboptimal evaluation the lung bases due to the respiratory motion artifact. Gas an d fluid within the left shoulder consistent with postoperative change from a recent left shoulder art hroplasty. IMPRESSION: 1. Small amount of fluid surrounding the mid to distal esophagus. There are also 2 small foci of gas within the mediastinum as described above which could be either within the wall of the esophagus or e xtraluminal. Therefore, these findings are concerning for an esophageal injury/small perforation. A d edicated fluoroscopy study of the esophagus or follow-up chest CT following administration of oral co ntrast can be used for further evaluation. 2. Mild emphysema. 3. Patchy densities within the bilateral lower lobes, left greater than right. This could represent a telectasis or pneumonia. 4. Postoperative changes within the left shoulder consistent with a recent shoulder arthroplasty. 5. Scattered pulmonary nodules remain stable. 6. These findings were called/faxed to the referring physician following dictation. ACT 112: Negative or not required by law. Electronically signed by: Pee Quiles M.D. 07/16/2020 3:06 PM
--- NOTE | 2020-07-16 15:14 | CT Scan Report ---
CT soft tissue neck wo con CT DOSE: CLINICAL HISTORY: choking on food ?residual TECHNIQUE: A dose lowering technique was utilized adhering to the principles of ALARA. COMPARISON STUDY: None. FINDINGS: Limited evaluation of lung apices shows mild paraseptal emphysema. Subcutaneous emphysema along left anterior chest wall is partially outside the [id number]. Visualized portion of esophagus is slightly dilated with gas fluid level and mild concentric thickeni ng of its wall. Airways are patent. No significant neck mass or lymphadenopathy seen. Visualized portion of thyroid gland shows no evidence of focal lesions. Retropharyngeal spaces are pr eserved. Overall evaluation is limited due to lack of IV contrast. No acute displaced fracture seen. There is mild mucosal thickening of the left frontal sinus. The res t of visualized paranasal sinuses and mastoid air cells are patent and well-aerated. Degenerative changes of the cervical and upper thoracic spine are seen. IMPRESSION: 1. Dilated fluid-filled esophagus with diffuse thickening of its wall is incompletely evaluated on t his nondedicated exam. Please correlate above-mentioned findings with prior history of esophageal abn ormalities. Further evaluation with endoscopy might be considered. 2. Emphysema. 3. Partially visualized subcutaneous emphysema in left anterior chest wall, might represent postoper ative changes. Please correlate with prior surgical history. ACT 112: Negative or not required by law. The above report was generated using voice recognition software. It may contain grammatical, syntax o r spelling errors. Electronically signed by: Amalia Arango DO 07/16/2020 3:13 PM
[2020-07-16] MEDS ORDERED: PIPERACILL/TAZOBAC CONSULT ACTIVE PRN (16:29)
[2020-07-16] MEDS: ACETAMINOPHEN 500 MG TAB PO SCH ×3 (16:32→23:07)
[2020-07-16] MEDS ORDERED: PIPERACILLIN/TAZOBACTAM 3.375 GM in DEXTROSE 5% 100 ML IV STA (16:33)
[2020-07-16] MEDS: PANTOprazole 40 MG in DEXTROSE 5% 100 ML IV SCH ×2 (17:33→23:06)
[2020-07-16] MEDS: ceFAZolin 2000MG 2,000 MG/15 ML SYR IV SCH (17:36)
[2020-07-16] MEDS: DOCUSATE SODIUM 100 MG CAP PO SCH (20:22)
[2020-07-16] MEDS: VARENICLINE 1 MG TAB PO SCH (20:22)
[2020-07-16] MEDS ORDERED: BUDESONIDE/FORMOTEROL FUMARATE 80/4.5 60 PUFFS/INHALER INH SCH (21:00)
[2020-07-16] MEDS ORDERED: SENNA 8.6 MG TAB PO SCH (21:00)
[2020-07-16] MEDS: PIPERACILLIN/TAZOBACTAM 3.375 GM in DEXTROSE 5% 100 ML IV SCH (23:13)
[2020-07-17] MEDS: SODIUM CHLORIDE 0.9% 1000ML 1,000 ML IV SCH (00:01)
[2020-07-17] MEDS ORDERED: ACETAMINOPHEN 500 MG TAB PO PRN (00:18)
[2020-07-17] MEDS ORDERED: ACETAMINOPHEN 1000 MG/100 ML IV IV PRN (00:29)
[2020-07-17] MEDS: ceFAZolin 2000MG 2,000 MG/15 ML SYR IV SCH (01:14)
[2020-07-17] MEDS: ACETAMINOPHEN 1000 MG/100 ML IV IV SCH ×2 (01:14→10:35)
[2020-07-17] MEDS: KETOROLAC TROMETHAMINE 15 MG/ML VIAL IV SCH ×2 (01:19→06:41)
[2020-07-17] MEDS: PANTOprazole 40 MG in DEXTROSE 5% 100 ML IV SCH ×3 (03:43→12:50)
[2020-07-17 06:21] LABS: Creatinine Clr Calc Pharmacy 62.1 ml/min; Est GFR (Non-African American) 60.4 ml/min
[2020-07-17] MEDS: PIPERACILLIN/TAZOBACTAM 3.375 GM in DEXTROSE 5% 100 ML IV SCH (06:41)
--- NOTE | 2020-07-17 07:34 | Orthopedic Progress Note ---
Date of Service July 17, 2020 Assessment & Plan (1) Status post reverse total replacement of left shoulder: Overall he is doing better this morning. He is not having any pain in the left shoulder and the nerve block is still in effect. He would like to start progressing his diet and go home today if possible. I reached out to the hospitalist. They would like to repeat the CT scan with some dye to be sure that there is no esophageal injury. They will also reach out to the GI team to see if anything further needs done. If he is unable to progress his diet today then we can certainly keep him till tomorrow, however, if the CT scan comes back negative and he is able to progress his diet without any issues then he can be discharged home later today. Baylee Brennan was seen and examined at bedside this morning. He is doing fairly well with his shoulder. Is not having much pain. He did have an episode yesterday where he was choking on some chicken. He did not have his teeth since the surgery. A code purple was called and the nurse performed the Heimlich maneuver. She was not able to get any of the chicken out. He began to feel better. The hospitalist was consulted. His oxygen saturations were normal. He then had a CT scan which did not show any debris in his esophagus or his lungs. There was some concern about a possible esophageal injury. He is currently n.p.o. and on Protonix. He says that he feels pretty good and would still like to go home today if possible.. Review of Systems All systems reviewed & are unremarkable except as noted in HPI & below. Physical Exam On physical examination of the left shoulder, the dressing has been changed. There is little bloody discharge on the dressing. He does not have any motion of his hand yet due to the left interscalene nerve block.. Results & Data Results & Data Laboratory Results . Diagnostic Findings Postoperative x-rays of the left shoulder show the prosthesis to be in anatomic alignment without any evidence of fracture, location, or loosening.. PG Care Time/CCT Total # of Minutes Spent Total Time Spent with Patient: Total time spent is greater than 50% in coordination of care (as documented) at patient's floor/unit and/or counseling patient: Coding Level of Care Code 59492 Post Operative Follow-Up Diagnoses Status post reverse total replacement of left shoulder Z96.612
[2020-07-17] MEDS ORDERED: dexAMETHasone 4 MG TAB PO SCH (08:00)
[2020-07-17] MEDS ORDERED: MULTIVITAMIN TAB PO SCH (09:00)
[2020-07-17] MEDS ORDERED: ROSUVASTATIN CALCIUM 20 MG TAB PO SCH (09:00)
[2020-07-17] MEDS ORDERED: ASPIRIN 81 MG ECTAB PO SCH (09:00)
[2020-07-17] MEDS ORDERED: FLUTICASONE/VILANTEROL 100/25MCG 14 PUFFS/INHALER INH SCH (09:00)
--- NOTE | 2020-07-17 09:03 | CT Scan Report ---
CT OF THE CHEST WITH ORAL CONTRAST CONTRAST CLINICAL HISTORY: possible esophageal injury COMPARISON STUDY: Chest CT July 16, 2020. TECHNIQUE: Helical axial images of the chest were obtained following ingestion of water soluble oral contrast. Sagittal and coronal reconstructions were viewed as well as maximal intensity projections on an independent 3-D workstation. Automated exposure control was utilized for the study. A dose l owering technique was utilized adhering to the principles of ALARA. CT DOSE: 1312.67 mGy.cm FINDINGS: Postoperative findings consistent with reverse total left shoulder arthroplasty again note d with skin tiago and soft tissue gas, as expected. Mild elevation of the left hemidiaphragm is unc hanged. A few locules of gas likely within the right lateral wall of the mid thoracic esophagus shown on axial image 138 of 351 are noted. The amount of gas has decreased since CT of July 16, 2020. No or al contrast extravasation is identified to suggest full-thickness esophageal tear. A small amount of fluid adjacent to the mid to distal esophagus has decreased since prior examination. Tiny diverticula along the inferior aspect of the danish are noted. No extraluminal gas is noted. Mild cardiomegaly i s noted. There is coronary artery calcification. No pericardial effusion is noted. Partially calcifie d pulmonary nodules remain unchanged. Exam is mildly compromised by motion artifact. There are trace bilateral pleural effusions. Bilateral lower lobe airspace opacities persist. IMPRESSION: 1. No oral contrast extravasation to suggest full-thickness esophageal tear. A few locules of gas lik queta within the wall of the mid thoracic esophagus, decreased since CT of July 16, 2020. This may refle ct a partial-thickness esophageal tear. Interval decrease in mediastinal fluid since prior examinatio n. 2. Trace bilateral pleural effusions. Persistent bilateral lower lobe opacities which favor atelectas is although pneumonia could appear similar. ACT 112: Negative or not required by law. Electronically signed by: Omi Bowden M.D. 07/17/2020 9:01 AM
[2020-07-17] MEDS: DOCUSATE SODIUM 100 MG CAP PO SCH (10:27)
[2020-07-17] MEDS: VARENICLINE 1 MG TAB PO SCH (10:27)
--- NOTE | 2020-07-17 11:25 | Hospitalist Progress Note ---
Date of Service July 17, 2020 Assessment & Plan (1) Choking episode: happened after he was trying to eat chicken but he did not have his teeth he was in distress and RN reported his face was purple Heimlich was performed but nothing came out except some clear liquid however, he felt better after the Heimlich and saturations 99% on 4L when I arrived lungs clear bilaterally with good flow, no stridor over neck still has a weird sensation in his throat but does not feel short of breath CT chest did not show any debris in large airways, thus no need for pulmonology consult, definitely no need for bronchoscopy see below for esophagus issue instructed him to chew completely, eat slowly, no talking/laughing while eating (2) Aspiration into lower respiratory tract: CT chest with bilateral infiltrates in lower lobes, more on left side certainly possible that he aspirated during choking spell and Heimlich will cover for now with Zosyn IV repeat CT chest today favors atelectasis, he is breathing comfortably on room air no need for further antibiotics (3) Esophageal injury: unsure if this is actual injury, could be result of Heimlich maneuver no chest pain, no epigastric pain, no dyspnea cautious over night with strict NPO, no meds or sips Protonix drip Zosyn for empiric coverage for GI translocation repeat CT chest with oral contrast on 07/17 with no extravasation, no evidence of full thickness tear will let patient go home will prescribe Protonix 40mg daily x 2 weeks in case there is a mild injury to help it heal Admission and Anticipated Discharge Date Admission Date: July 16, 2020 Subjective patient feeling well this morning, wants something to eat and drink he denies chest pain, nausea/vomiting discussed with Dr. Bowden in radiology, he recommended repeat CT chest with oral contrast only this study did NOT show extravasation of contrast, thus full thickness tear of esophagus ruled out he ate and did fine, no pain, no choking discussed plan with him and his daughter, he needs to chew food completely, eat slowly, suggested alternating food with liquids to keep mouth moist will give him Protonix 40mg daily x 2 weeks Review of Systems Review of Systems: All systems reviewed & are unremarkable except as noted in Subjective Physical Exam Constitutional: well developed, well nourished and comfortable; no acute distress Neck: trachea midline, no thyromegaly (no stridor) Respiratory: normal respiratory effort, lungs clear to auscultation Cardiovascular: RRR, no murmur, no edema Gastrointestinal (Abdomen): normal bowel sounds, soft, nontender, no hepa tosplenomegaly Musculoskeletal: Head/Neck/Chest: normocephalic, head atraumatic and neck supple Extremities: strength 5/5 throughout; no cyanosis, no clubbing and no petechiae Shoulder: + shoulder abnormal to inspection (left shoulder in sling, bandaged) Skin: no rashes, warm and dry Neurologic: CN's II-XI intact bilaterally, deep tendon reflexes 2+ bilaterally, moves all extremities and awake; + abnormal sensation to monofilame nt (lack of sensation in left hand, arm from nerve block) and no focal motor deficits Psychiatric: A+Ox3, euthymic affect Lymphatic: no cervical or axillary lymphadenopathy Results & Data Results & Data ([facility]) Vital Signs (Past 12 Hours) Vital Signs Temp Pulse Resp BP Pulse Ox Pulse Ox Pulse Ox 07/17/20 09:52 95 83 L 07/17/20 07:36 36.6 C 71 16 115/72 92 07/17/20 03:39 36.4 C L 70 18 102/61 91 Laboratory Results Laboratory Results - last 24 hr 07/17/20 05:21 Creatinine 1.18 Est Cr Clr Drug Dosing 62.1 Est GFR ( Amer) 70.0 Est GFR (Non-Af Amer) 60.[address] chest IMPRESSION: 1. No oral contrast extravasation to suggest full-thickness esophageal tear. A few locules of gas likely within the wall of the mid thoracic esophagus, decreased since CT of July 16, 2020. This may reflect a partial-thickness esophageal tear. Interval decrease in mediastinal fluid since prior examination. 2. Trace bilateral pleural effusions. Persistent bilateral lower lobe opacities which favor atelectasis although pneumonia could appear similar. Medications Administered Current Inpatient Medications Acetaminophen (Acetaminophen 1000 Mg/100 Ml Iv) 1,000 mg IV Q8H [facility] Stop: 07/20/20 00:59 Last Admin: 07/17/20 10:35 Dose: 1,000 mg Documented by: Aspirin (Aspirin 81 Mg Ectab) 81 mg PO QAM [facility] Stop: 08/16/20 08:59 Last Admin: 07/17/20 10:27 Dose: 81 mg Documented by: Bisacodyl (Bisacodyl 10 Mg Supp) 10 mg NM DAILY PRN PRN Reason: Constipation Stop: 08/15/20 13:08 Docusate Sodium (Docusate Sodium 100 Mg Cap) 100 mg PO BID [facility] Stop: 08/15/20 20:59 Last Admin: 07/17/20 10:27 Dose: 100 mg Documented by: Fluticasone/Vilanterol (Fluticasone/Vilanterol 100/25mcg 14 Puffs/Inhaler) 1 puffs INH DAILY [facility] Stop: 08/16/20 08:59 Last Admin: 07/17/20 10:28 Dose: 1 puffs Documented by: Hydromorphone HCl (Hydromorphone Inj 0.5 Mg/0.5 Ml Syr) 0.5 mg IV Q4H PRN PRN Reason: Pain or Pre PT Stop: 07/30/20 13:08 Pantoprazole Sodium 40 mg/ (Dextrose) 100 mls @ 20 mls/hr IV Q5H [facility] Stop: 08/15/20 16:14 Last Admin: 07/17/20 08:18 Dose: 8 mg/hr, 20 mls/hr Documented by: Piperacillin Sod/Tazobactam (Sod 3.375 gm/ Dextrose) 115 mls @ 28.75 mls/hr IV Q8H [facility] Stop: 07/26/20 21:59 Last Infusion: 07/17/20 10:48 Dose: Infused Documented by: Ketorolac Tromethamine (Ketorolac Tromethamine 15 Mg/Ml Vial) 15 mg IV Q6H [facility] Stop: 07/18/20 07:10 Last Admin: 07/17/20 06:41 Dose: 15 mg Documented by: Magnesium Hydroxide (Magnesium Hydroxide Susp 30 Ml Udc) 30 ml PO Q6H PRN PRN Reason: Constipation Stop: 08/15/20 13:08 Metoclopramide HCl (Metoclopramide Hcl Inj 5 Mg/Ml 2 Ml Vial) 10 mg IV Q6H PRN PRN Reason: Nausea And Vomiting Stop: 08/15/20 13:08 Miscellaneous (Acitretin: Order Awaiting Action) 1 ea N/A QS [facility] Stop: 08/15/20 15:59 Last Admin: 07/17/20 07:13 Dose: Not Given Documented by: Miscellaneous (Taclonex: Order Awaiting Action) 1 ea N/A QS [facility] Stop: 08/15/20 15:59 Last Admin: 07/17/20 07:14 Dose: Not Given Documented by: Miscellaneous Information (Piperacill/Tazobac Consult Active) 1 ea N/A UD PRN PRN Reason: Consult Stop: 08/15/20 16:28 Multivitamins (Multivitamin Tab) 1 tab PO QAM [facility] Stop: 08/16/20 08:59 Last Admin: 07/17/20 10:27 Dose: 1 tab Documented by: Naloxone HCl (Naloxone Hcl 0.4 Mg/1 Ml Vial/Carp) 0.1 mg IV Q5M PRN PRN Reason: Oversedation/Resp Depression Stop: 08/15/20 13:08 Nitroglycerin (Nitroglycerin Sl 0.4 Mg/Tab Tab) 0.4 mg SL Q5M PRN PRN Reason: chest pain Stop: 08/15/20 13:08 Ondansetron HCl (Ondansetron Inj 2 Mg/Ml 2 Ml Vial) 4 mg IV Q6H PRN PRN Reason: Nausea And Vomiting Stop: 08/15/20 13:08 Last Admin: 07/16/20 14:07 Dose: 4 mg Documented by: Oxycodone HCl (Oxycodone Hcl Ir 5 Mg Tab (Immediate Release)) 5 - 10 mg PO Q4H PRN PRN Reason: Pain or Pre PT Stop: 07/30/20 13:08 Rivaroxaban (Rivaroxaban 20 Mg Tab) 20 mg PO QDD [facility] Stop: 08/16/20 16:29 Rosuvastatin Calcium (Rosuvastatin Calcium 20 Mg Tab) 20 mg PO QAM [facility] Stop: 08/16/20 08:59 Last Admin: 07/17/20 10:48 Dose: 20 mg Documented by: Sennosides (Senna 8.6 Mg Tab) 17.2 mg PO HS [facility] Stop: 08/15/20 20:59 Last Admin: 07/16/20 20:22 Dose: Not Given Documented by: Varenicline (Varenicline 1 Mg Tab) 1 mg PO BID [facility] Stop: 08/15/20 20:59 Last Admin: 07/17/20 10:27 Dose: 1 mg Documented by: PG Care Time/CCT Total # of Minutes Spent Total Time Spent with Patient: Total time spent is greater than 50% in coordination of care (as documented) at patient's floor/unit and/or counseling patient: Coding Level of Care Code 28747 Subseq Hosp Care Lvl 3 Diagnoses Choking episode R09.89 Aspiration into lower respiratory tract T17.800A Esophageal injury S27.819A
[2020-07-17] MEDS ORDERED: RIVAROXABAN 20 MG TAB PO SCH (16:30)
--- NOTE | 2020-07-23 15:57 | Discharge Summary ---
Date of Service July 23, 2020 Admission HPI (Per Admitting) Mika is a pleasant 75-year-old male who is been dealing with a several year history of increasing left shoulder pain and weakness. He has a history of a right rotator cuff repair done by Dr. Tijerina in the past. His left shoulder is painful and weak. 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 After failing conservative treatment, he has elected to proceed with a left reverse shoulder arthroplasty. . Admission Exam (Per Admitting) On physical examination of the left shoulder, he has near full active range of motion. He has 3 out of 5 motion of the full can testing and 3 out of 5 motion with external rotation. He has a negative belly press test. He has pain over the anterior glenohumeral joint line. . Principal Diagnosis Same as "Discharge Diagnosis" noted below under Discharge Instructions. Discharge Data Consultations 07/16/20 14:33 Consult Hospitalist Routine 07/16/20 16:29 Consult Gastroenterology Routine Procedures Performed Operation Date: 07/16/20 10:30 Actual Procedures p Left Total Shoulder Arthroplasty Reverse(Left) - Russell Sanchez DO Ordered Studies 07/16/20 05:00 US - OR guided needle placemen Routine 07/16/20 13:59 CT soft tissue neck wo con Stat 07/16/20 14:00 CT chest diagnostic wo con Stat 07/17/20 08:10 CT chest diagnostic w con Urgent Hospital Course (1) Status post reverse total replacement of left shoulder: On July 16, 2020 Mika arrived at [facility] and underwent a left reverse shoulder replacement without complication. He had a general anesthetic and a left interscalene nerve block. Postoperatively he was transferred to the general orthopedic floors. While he was eating postoperatively he choked on a piece of chicken. A code purple was called and the Heimlich maneuver was performed. He never lost oxygen saturation but was able to swallow the obstruction and continue breathing. The hospitalist was consulted. A CT scan showed no obstructive objects but did show questionable damage to the esophagus. He was kept n.p.o. The following day he was doing well. He says he felt well and he had no symptoms. He had no pain in his shoulder. A repeat CT scan was done and there was no esophageal damage. His diet was advanced and tolerated it well. He was seen by physical therapy and able to participate with ambulation and range of motion exercises. He was then discharged to home. He will follow-up with orthopedics in 2 weeks. PG Care Time/CCT Total # of Minutes Spent Total Time Spent with Patient: Total time spent is greater than 50% in coordination of care (as documented) at patient's floor/unit and/or counseling patient: Discharge Plan Discharge Items Patient Disposition: Home - Home Health Services Reason For Visit: DJD Shoulder Left Discharge Diagnosis: Left reverse shoulder replacement Condition on Discharge: Good Activity: As commented below Non-emergency contact: Surgeon Call non-emergency contact if: your wound has increased redness and your wound has increased drainage Follow-up/Referrals: Mihir Ybarra MD [Primary Care Provider] - Diet: Regular Addtl Attending Provider Instructions: Activity and Therapy Recommendations: * If you are using [facility] then therapy will be provided at your home until they feel you have accomplished all of your goals. * If you are using [facility] then Physical Therapy will be provided until they feel you are ready to start Outpatient Physical Therapy. * If you are not using home therapy then Outpatient Physical Therapy should start about 3-5 days from your day of surgery. Therapy will last about 8-12 weeks * Wear your sling for 3 weeks, unless otherwise instructed. You may remove your sling to shower and to dress, but otherwise, you should be in your sling at all times, including while sleeping * The shoulder replacement is very stable and you can use your hand while in the sling * You were shown a series of exercises in the hospital. Do these exercises daily including the exercises you were shown in physical therapy. Medications: * Narcotic You will likely be sent home from the hospital with a prescription for the narcotic pain medication that worked best throughout your stay. * Other medications may be prescribed for specific circumstances. If you have any questions, please call the office at . * Resume previous home medications unless otherwise instructed Dressing Care: Dressing changes as needed for the first 5 days. After 5 days you may leave the incision open to air. If the incision is not draining then you may leave the tiago open to air. If there is a little bit of drainage or if the tiago are getting stuck on your clothing then cover the incision with a dry dressing. The tiago will be removed at your 2 week follow-up appointment. Showering: You may shower 5 days after the day of surgery as long as the incision is not draining.. You may shower with the tiago exposed. Let soapy water run over the tiago and pat them dry. Do not scrub or soak the incision. Things To Watch For: * Drainage from the incision site that occurs more than one week after your surgery. * Increased redness at the incision site. * Fever above 102 degrees Fahrenheit. * Unusual chest pain or shortness of breath. * Call [facility] at with any of the above problems Follow-Up Visit: Follow-up with Dr. Sanchez's PA (Russell Jiménez) 2-3 weeks after your day of surgery. He will remove your tiago and answer any questions. If you have any additional questions or concerns, Dr Sanchez is usually in the office at the same time and will be available An appointment was probably scheduled when you signed-up for surgery in the office. If you have any questions call More detailed instructions as well as Frequently Asked Questions were provided in a folder by our office when you signed-up for surgery. Please review these instructions when you get home. If you have any further questions or concerns, please feel free to call the office at [phone] Addtl Shoulder Boner Provider Instructions: Hospitalist instructions As we discussed, eat slowly, chew foods completely, sit upright, no talking or laughing while eating Recommend alternating food and drinking to keep mouth moist CT chest with oral contrast shows no extravasation of contrast so definitely no full thickness tear, still might have mild injury to esophagus from Heimlich maneuver and retching afterwards Recommend that you take Protonix daily for next two weeks Pending Studies at Discharge: No Stand-Alone Forms: [facility] [employer], Opioid Pain Management Medications and DC Order Prescriptions: New oxycodone 5 mg Tablet 5 mg PO Q4H PRN (Reason: pain) Qty: 30 RF: 0 pantoprazole 40 mg tablet,delayed release (DR/EC) 40 mg PO DAILY 14 Days Qty: 14 RF: 0 Continued Symbicort 80-4.5 mcg/actuation HFA aerosol inhaler 2 puffs INH BID Qty: 10.2 RF: 11 Chantix Continuing Month Box 1 mg tablet 1 mg PO BID Qty: 60 RF: 4 nitroglycerin 0.4 mg tablet, sublingual 0.4 mg SL Q5M PRN (Reason: chest pain) Qty: 25 RF: 3 acetaminophen 500 mg Capsule 1,000 mg PO Q6H PRN (Reason: Pain) RF: 0 acitretin [Soriatane] 25 mg capsule 25 mg PO 3XWK RF: 0 rosuvastatin [Crestor] 20 mg tablet 20 mg PO QAM RF: 0 calcipotriene-betamethasone [Taclonex] 0.005-0.064 % ointment 1 appln topical QAM RF: 0 rivaroxaban 20 mg tablet 20 mg PO QAM RF: 0 aspirin 81 mg Tablet,Delayed Release (Dr/Ec) 81 mg PO QAM RF: 0 Discharge Orders: Discharge Order (Routine); Ordered 07/17/20 Ordered By: Russell Dutta/Other Patient Handouts: DVT Post Op Prevention Admission Data Admit Date/Time: 07/16/20 11:41 Attending Provider: Russell Sanchez Admit Provider: Russell Sanchez Primary Care Provider: Mihir Ybarra Other Providers: Omid An Other Interventions: Discharge Summary Assessment (RN) Last Done: 07/17/20 12:42
== END 2020-07-17 13:23 | disposition home health service (06) ==
LOC: ASU 08:00 → 3E 11:41 → INTOOBSV 11:41
DX: Z20.822 Contact with and (suspected) exposure to COVID-19; M75.102 Unspecified rotator cuff tear or rupture of left shoulder, not specified as traumatic; F17.210 Nicotine dependence, cigarettes, uncomplicated; I25.10 Atherosclerotic heart disease of native coronary artery without angina pectoris; M12.812 Other specific arthropathies, not elsewhere classified, left shoulder; M75.22 Bicipital tendinitis, left shoulder